=== PATIENT | male | born 1990 | race Caucasian/White ===

== ENCOUNTER 2020-09-24 18:30 | Inpatient (IN) ==
[2020-09-24] MEDS ORDERED: ONDANSETRON INJ 2 MG/ML 2 ML VIAL IV STA (18:52)
[2020-09-24] MEDS ORDERED: cefTRIAXone SODIUM 2,000 MG/70 ML BAG IV STA (18:52)
[2020-09-24] MEDS ORDERED: SODIUM CHLORIDE 0.9% 1000ML 500 ML IV ONE (18:52)
--- NOTE | 2020-09-24 19:02 | Emergency Department Note ---
Impression & Plan Post-operative pain, Left buttock abscess, Leukocytosis ED Provider Note NAME: LAISHA PASCUAL AGE: 30 SEX: M : 1990 ARRIVES VIA: Walk-In INFORMANT: [Patient] ED PROVIDER(S): [Chapincito Harper MD] CHIEF COMPLAINT: Left buttock pain HISTORY OF PRESENT ILLNESS: The patient is a 30-year-old male who states that he left AMA from the [facility] this morning. He had presented there with 3 days of left buttock pain and with imaging, they found a deep buttock abscess. This was drained in the OR. The patient states that he was on IV antibiotics. This morning, his white blood cell count was 18,000. He got into an argument with the staff over his level of pain and what medication could be used for pain. He then signed out AGAINST MEDICAL ADVICE. The patient states that he is concerned that he needs further care. They actually were planning on keeping him in the hospital for 2 more days. There has been no fever, he has 8/10 left buttock pain. The wound has been draining but there has been no purulent drainage. No redness noticed. He has not had cough or cold or congestion. He feels anxious and states that he has not slept in about 40 hours because of the pain. The patient is a recovering narcotic abuser. He states he was on narcotic main tenance therapy for some time, no longer. REVIEW OF SYSTEMS: See HPI for pertinent positives and negatives. A total of ten systems were reviewed and were otherwise negative. PMHx/PSHx: See Below SOCIAL HISTORY: See Below. PHYSICAL EXAM: GENERAL: Patient is in mild distress from pain HEENT: No acute trauma, normocephalic atraumatic, mucous membranes moist, no nasal congestion, no scleral icterus. NECK: No stridor, no adenopathy, no meningismus, trachea is midline. LUNGS: Clear to auscultation bilaterally, no wheeze, no rhonchi, breath sounds equal. HEART: Tachycardic, regular rhythm, no murmurs. ABDOMEN: Soft, nontender, bowel sounds positive, no hernias, no peritonitis. EXTREMITIES: No cyanosis or edema, full range of motion of all the joints without pain or difficulty, no signs for acute trauma. NEUROLOGIC: Oriented x 3, no acute motor or sensory deficits, no focal weakness. SKIN: No rash, no jaundice, no diaphoresis. Buttock: The patient has a 2 cm incision to the left buttock. There is a dressing in place with some serosanguineous drainage. No surrounding erythema, no warmth. DIFFERENTIAL DIAGNOSIS: Abscess, cellulitis, hematoma, necrotizing fasciitis, drug abuse, medical noncompliance, suboptimal wound care. EMERGENCY DEPARTMENT COURSE/PROCEDURES: MEDICAL DECISION MAKING: There is a moderate leukocytosis at 16,000, this could be consistent with infection. As per the patient, his white blood cell count was 18,000 this morning. Patient is anemic with a hemoglobin of 10. Patient does carry history of anemia. Platelet count is elevated at 853. No significant electrolyte abnormality or kidney failure. No liver enzyme elevation. On exam, the patient had a surgical wound to the left buttock. There was some subtle surrounding erythema. No purulent drainage. The patient was not febrile. He was slightly tachycardic upon arrival though. The patient received a 500 cc saline bolus. He was given 2 g of IV ceftriaxone as antibiotic coverage. He received IV Dilaudid for pain, IV Zofran for nausea. We did contact [facility], they are working on sending his information from his recent hospital stay to us for review. I think the patient deserves a hospital stay. He was to stay at the other facility for a few more days. I do think IV antibiotic therapy would be warranted. 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 If he does well with IV antibiotics, he can be transitioned to oral antibiotic therapy. I spoke to the patient and case management. The on-call hospitalist was consulted. Past Med/Surg History Medical History Diabetes type 1, uncontrolled Peptic ulcer with perforation Surgical History History of pancreatectomy Hx of cholecystectomy Hx of splenectomy Family History Other No pertinent family history in first degree relatives Social History Smoking Status: Current every day smoker Cigarettes Per Day: 1 pack a day; Hx Alcohol Use: No Feels Safe at Home: Yes Allergies Allergies Allergy/AdvReac Type Severity Reaction Status Date / Time gabapentin Allergy Intermediate Hives Verified 09/24/20 19:43 metoclopramide [From Reglan] Allergy Intermediate Hives Verified 09/24/20 19:43 NSAIDS (Non-Steroidal AdvReac Unknown Ulcers Verified 09/24/20 19:43 Anti-Inflamma Home Meds Home Medications Medication Instructions Recorded Confirmed insulin glargine 100 unit/mL (3 15 units SQ HS ml 01/14/20 09/24/20 mL) subcutaneous pen amitriptyline 25 mg PO HS 09/24/20 09/24/20 ascorbic acid (vitamin C) [Vitamin 500 mg PO DAILY 09/24/20 09/24/20 C] duloxetine 30 mg PO DAILY 09/24/20 09/24/20 ferrous sulfate 325 mg PO QAM 09/24/20 09/24/20 insulin lispro [Humalog KwikPen See Rx Instructions .ROUTE .COMPLEX 09/24/20 09/24/20 Insulin] [id number] [Zenpep] See Rx Instructions .ROUTE .COMPLEX 09/24/20 09/24/20 nicotine 1 patch TRANSDERMAL DAILY 09/24/20 09/24/20 omeprazole 40 mg PO BID 09/24/20 09/24/20 polyethylene glycol 3350 [Miralax] 17 g PO DAILY PRN 09/24/20 09/24/20 sucralfate 1 g PO ACHS 09/24/20 09/24/20 Results & Data (ED) Vital Signs Vital Signs - 24 hr 09/24/20 18:34 09/24/20 19:32 09/24/20 19:34 Temperature 36.8 C Temperature Source Oral Pulse Rate 118 H 91 H 95 H Pulse Rate [Bilateral Apical] Respiratory Rate 20 22 22 Respiratory Effort / Characteristics Non-Labored Spontaneous Respiratory Depth Normal Respiratory Pattern Regular Blood Pressure 159/54 H 139/94 Blood Pressure [Left Arm] Blood Pressure Mean 89 104 Blood Pressure Mean [Left Arm] Pulse Oximetry 99 Oxygen Delivery Method Room Air Sepsis Recent Fever Within 48 Hours No Sepsis New/Unexplained Change in Mental Status N/A Sepsis Action Taken by Nursing No Action Required 09/24/20 20:17 09/24/20 21:06 09/24/20 21:49 Temperature Temperature Source Pulse Rate Pulse Rate [Bilateral Apical] 91 H 87 92 H Respiratory Rate 20 20 18 Respiratory Effort / Characteristics Respiratory Depth Respiratory Pattern Blood Pressure Blood Pressure [Left Arm] 139/94 174/95 H Blood Pressure Mean Blood Pressure Mean [Left Arm] 109 121 Pulse Oximetry 96 100 95 Oxygen Delivery Method Room Air Room Air Room Air Sepsis Recent Fever Within 48 Hours Sepsis New/Unexplained Change in Mental Status Sepsis Action Taken by Nursing 09/24/20 22:13 Temperature Temperature Source Pulse Rate Pulse Rate [Bilateral Apical] 92 H Respiratory Rate 18 Respiratory Effort / Characteristics Respiratory Depth Respiratory Pattern Blood Pressure Blood Pressure [Left Arm] 140/97 Blood Pressure Mean Blood Pressure Mean [Left Arm] 111 Pulse Oximetry 97 Oxygen Delivery Method Room Air Sepsis Recent Fever Within 48 Hours Sepsis New/Unexplained Change in Mental Status Sepsis Action Taken by [facility] Medications Current Medication List: was personally reviewed by me Laboratory Data Attestation: I reviewed the patient's lab results. Result diagrams: 09/24/20 20:44 09/24/20 20:20 Lab Results 09/24/20 09/24/20 Range/Units 20:20 20:44 WBC 16.51 H (4.8-10.8) K/uL RBC 4.63 L (4.7-6.1) M/uL Hgb 10.0 L (14.0-18.0) g/dL Hct 35.6 L (42-52) % MCV 76.9 L (80-100) fL MCH 21.6 L (25-34) pg MCHC 28.1 L (32-36) g/dL RDW Std Deviation 72.2 H (36.4-46.3) fL RDW Coeff of Tomas 26.6 H (11.5-14.5) % Plt Count 853 H (130-400) K/uL MPV 9.8 (7.4-10.4) fL Immature Gran % (Auto) 0.4 % Neut % (Auto) 77.5 % Lymph % (Auto) 10.9 % Gage % (Auto) 9.9 % Eos % (Auto) 0.8 % Baso % (Auto) 0.5 % Neut # (Auto) 12.80 H (1.4-6.5) K/uL Lymph # (Auto) 1.80 (1.2-3.4) K/uL Gage # (Auto) 1.63 H (0.11-0.59) K/uL Eos # (Auto) 0.13 (0-0.5) K/uL Baso # (Auto) 0.09 (0-0.2) K/uL Immature Gran # (Auto) 0.06 H (0.00-0.02) K/uL Toxic Vacuolation 1+ Hypochromasia Present Anisocytosis Present Spherocytes Occasional Target Cells 1+ Echinocytes 1+ Sodium 137 (136-145) mmol/L Potassium (3.5-5.1) mmol/L Chloride 106 (98-107) mmol/L Carbon Dioxide 25 (21-32) mmol/L Anion Gap 6.0 (3-11) BUN 7 (7-18) mg/dl Creatinine 1.05 (0.6-1.4) mg/dl Est Cr Clr Drug Dosing 107.2 ml/min Est GFR ( Amer) 110.6 Est GFR (Non-Af Amer) 95.5 BUN/Creatinine Ratio 6.2 L (10-20) Glucose 90 (70-99) mg/dl Calcium 8.7 (8.5-10.1) mg/dl Total Bilirubin 0.3 (0.2-1) mg/dl AST (15-37) U/L ALT 62 (12-78) U/L Alkaline Phosphatase 105 (45-117) U/L Total Protein 7.4 (6.4-8.2) gm/dl Albumin 2.9 L (3.4-5.0) gm/dl Globulin 4.5 H (2.5-4.0) gm/dl Albumin/Globulin Ratio 0.6 L (0.9-2) Administered Medications Hydromorphone HCl (Hydromorphone Inj 1 Mg/Ml Syringe) 1 mg IV Q30M PRN PRN Reason: Pain Stop: 10/08/20 18:51 Last Admin: 09/24/20 21:04 Dose: 1 mg Documented by: [id number] Admin: 09/24/20 20:19 Dose: 1 mg Documented by: [id number] Discontinued Medications Sodium Chloride (Nss 1000ml) 500 mls @ 999 mls/hr IV .Q31M ONE Stop: 09/24/20 19:22 Last Infusion: 09/24/20 20:55 Dose: 0 mls/hr Documented by: [id number] Admin: 10/31/20 20:19 Dose: 999 mls/hr Documented by: [id number] Ceftriaxone Sodium (Rocephin) 2,000 mg in 70 mls @ 140 mls/hr IV NOW STA Stop: 09/24/20 19:21 Last Infusion: 09/24/20 20:55 Dose: 0 mls/hr Documented by: [id number] Admin: 09/24/20 20:19 Dose: 140 mls/hr Documented by: [id number] Ondansetron HCl (Ondansetron Inj 2 Mg/Ml 2 Ml Vial) 4 mg IV NOW STA Stop: 09/24/20 18:53 Last Admin: 09/24/20 20:19 Dose: 4 mg Documented by: [id number] Discharge Plan Visit Data Chief Complaint: Wound Stated Complaint: surgery yesterday, wound ED Provider: Chapincito Harper Discharge Problem: Post-operative pain, Left buttock abscess, Leukocytosis Patient Disposition: Admitted As Inpatient Condition: Good Forms Stand Alone Forms: Grafighters Prescriptions Prescriptions: No Action Lantus Solostar U-100 Insulin 100 unit/mL (3 mL) insulin pen 15 units SQ HS RF: 0 sucralfate 1 gram tablet 1 g PO ACHS RF: 0 omeprazole 40 mg capsule,delayed release(DR/EC) 40 mg PO BID RF: 0 amitriptyline 25 mg tablet 25 mg PO HS RF: 0 ascorbic acid (vitamin C) [Vitamin C] 500 mg tablet 500 mg PO DAILY RF: 0 ferrous sulfate 325 mg (65 mg iron) tablet 325 mg PO QAM RF: 0 nicotine 21 mg/24 hr Patch 24 Hour 1 patch TRANSDERMAL DAILY RF: 0 polyethylene glycol 3350 [Miralax] 17 gram/dose Powder 17 g PO DAILY PRN (Reason: Constipation) RF: 0 insulin lispro [Humalog KwikPen Insulin] 100 unit/mL insulin pen See Rx Instructions .ROUTE .COMPLEX RF: 0 duloxetine 30 mg capsule,delayed release(DR/EC) 30 mg PO DAILY RF: 0 Zenpep 40,000-126,000- 168,000 unit capsule,delayed release(DR/EC) See Rx Instructions .ROUTE .COMPLEX RF: 0 Referrals Referrals: PCP,NO [Primary Care Provider] - Discharge Problem: Leukocytosis Qualifiers: Leukocytosis type: unspecified Qualified Code(s): D72.829 - Elevated white blood cell count, unspecified
[2020-09-24] MEDS: HYDROmorphone INJ 1 MG/ML SYRINGE IV PRN ×3 (20:19→22:40)
[2020-09-24 21:13] LABS: Albumin Globulin Ratio 0.6 (0.9-2); Albumin Level 2.9 gm/dl (3.4-5.0); BUN Creatinine Ratio 6.2 (10-20); Bilirubin,Total 0.3 mg/dl (0.2-1); Calcium 8.7 mg/dl (8.5-10.1); Creatinine Clr Calc Pharmacy 107.2 ml/min; Est GFR (African American) 110.6; Est GFR (Non-African American) 95.5; Globulin 4.5 gm/dl (2.5-4.0); Total Protein 7.4 gm/dl (6.4-8.2)
[2020-09-24 21:18] LABS: Hematocrit (blood only) 35.6 % (42-52); Mean Corpuscular Hemoglobin 21.6 pg (25-34); Mean Corpuscular Hgb Conc 28.1 g/dL (32-36); Mean Corpuscular Volume 76.9 fL (80-100); Mean Platelet Volume 9.8 fL (7.4-10.4); Platelet Count 853 K/uL (130-400); RDW Coefficient of Variation 26.6 % (11.5-14.5); RDW Standard Deviation 72.2 fL (36.4-46.3); Red Blood Count 4.63 M/uL (4.7-6.1); White Blood Count 16.51 K/uL (4.8-10.8)
[2020-09-24 21:35] LABS: Anisocytosis Present; Basophils # (auto) 0.09 K/uL (0-0.2); Basophils % (auto) 0.5 %; Echinocytes 1+; Eosinophils # (auto) 0.13 K/uL (0-0.5); Eosinophils % (auto) 0.8 %; Hypochromasia Present; Immature Granulocytes # (auto) 0.06 K/uL (0.00-0.02); Immature Granulocytes % (auto) 0.4 %; Lymphocytes % (auto) 10.9 %; Monocytes # (auto) 1.63 K/uL (0.11-0.59); Monocytes % (auto) 9.9 %; Neutrophils % (auto) 77.5 %; Spherocytes Occasional; Target Cells 1+; Toxic Vacuolation 1+
[2020-09-24] MEDS ORDERED: POLYETHYLENE (MIRALAX) 17 GM PACK PO PRN (23:55)
[2020-09-24] MEDS ORDERED: ACETAMINOPHEN 325 MG TAB PO PRN (23:55)
[2020-09-24] MEDS ORDERED: PIPERACILL/TAZOBAC CONSULT ACTIVE PRN (23:55)
[2020-09-24] MEDS ORDERED: ONDANSETRON INJ 2 MG/ML 2 ML VIAL IV PRN (23:55)
[2020-09-25] MEDS ORDERED: PANTOprazole 40 MG TAB PO SCH (00:01)
[2020-09-25] MEDS ORDERED: PANCREAZE (LIPASE 16,800U) CAP PO PRN (00:11)
[2020-09-25] MEDS: oxyCODONE HCL IR 5 MG TAB (IMMEDIATE RELEASE) PO PRN ×4 (00:13→18:23)
[2020-09-25] MEDS ORDERED: GLUCOSE 10 TABS/TUBE PO PRN (00:15)
[2020-09-25] MEDS ORDERED: GLUCAGON FOR INJ 1 MG VIAL SQ PRN (00:15)
[2020-09-25] MEDS ORDERED: GLUCOSE 40% GEL 15 GM TUBE PO PRN (00:15)
[2020-09-25] MEDS ORDERED: CARBOHYDRATES FOR HYPOGLYCEMIA PO PRN (00:15)
[2020-09-25] MEDS ORDERED: DEXTROSE 50% 50 ML SYRINGE IV PRN (00:15)
[2020-09-25] MEDS ORDERED: PIPERACILLIN/TAZOBACTAM 3.375 GM in DEXTROSE 5% 100 ML IV SCH (00:30)
[2020-09-25] MEDS: HYDROmorphone INJ 0.5 MG/0.5 ML SYR IV PRN ×4 (01:52→12:29)
--- NOTE | 2020-09-25 02:00 | History and Physical Report ---
DATE OF ADMISSION: 09/24/2020 CHIEF COMPLAINT: Left gluteus abscess. HISTORY OF PRESENT ILLNESS: This is a 30-year-old male with past medical history significant for chronic pancreatitis, status post Whipple's procedure x2 with splenectomy, pancreatectomy, and cholecystectomy, history of insulin-dependent diabetes mellitus, pseudoseizures, peptic ulcer disease, GI bleeding, iron deficiency anemia, who presents with left buttocks wound. The patient was in the [facility] yesterday and CT scan and MRI scan showed about 10 x 2 x 4.4 cm left gluteal deep abscess which was drained and plan was to keep him there for a couple of days with IV antibiotics, but the patient asked for Dilaudid and he was not given and he signed out AMA and he comes back here today because of increasing pain in the buttock region. Denies any fever or chills. There is mild serosanguineous drainage seen at the wound site. Denies any fever, chills. No headache, no blurred vision, no earache, no runny nose, no sore throat, no cough, no dysphagia, no chest pain, no shortness of breath, no nausea, no vomiting, no abdominal pain currently. No blood in the stools or black stools. Normal bladder movements. No swelling in the legs, no rash. Currently resting comfortably and hemodynamically stable. ALLERGIES: NSAIDS, AZITHROMYCIN, GABAPENTIN, REGLAN. PAST MEDICAL HISTORY: As mentioned above. PAST SURGICAL HISTORY: Colonoscopy, EGD, Whipple's procedure x2, cholecystectomy, inguinal hernia repair, transplant of islet cells, pain pump insertion with removal, peripheral arterial ulcer with repair. MEDICATIONS: Currently the patient is on amitriptyline 25 mg at bedtime, vitamin C 500 mg p.o. daily, duloxetine 30 mg p.o. daily, ferrous sulfate 325 mg p.o. daily, Lantus 15 units subQ at bedtime, insulin sliding scale, Creon with meals, nicotine patch 21 mg daily, omeprazole 40 mg p.o. b.i.d., MiraLax 17 mg p.o. daily, sucralfate 1 gram p.o. a.c. and at bedtime. FAMILY HISTORY: Significant for paternal grandfather has dementia, maternal grandfather has dementia.. SOCIAL HISTORY: Single, smokes half pack a day for last 8 years. Alcohol occasionally. No recreational drug use. REVIEW OF SYSTEMS: As per HPI. Rest of the review of systems negative. PHYSICAL EXAMINATION: GENERAL: The patient is of moderate build, not in acute distress. VITAL SIGNS: Temperature 36.8, pulse 84, respiratory rate 18, blood pressure 160/98, oxygen 95% on room air. HEENT: Pupils equal, round, and reactive to light. NECK: No JVD, no neck masses. CARDIOVASCULAR: S1, S2 heard. Regular rate and rhythm, no murmur, no gallop. RESPIRATORY SYSTEM: Normal AP diameter. No accessory muscle use. No wheezing, no crackles. ABDOMEN: Soft. Bowel sounds present, nontender. No distention. CENTRAL NERVOUS SYSTEM: Cranial nerves II-XII grossly intact, nonfocal. SKIN: Small incision site seen on the left buttocks. The patient is status post I and D yesterday, the site is clean. Mild serosanguineous drainage seen. No erythema seen. EXTREMITIES: No edema, no erythema. LABORATORY DATA: WBC 16.5, hemoglobin 10, hematocrit 35.6, platelets 853. Sodium 137, , chloride 106, bicarbonate 25, BUN 7, creatinine 1, serum glucose 90, calcium 8.7, total bilirubin 0.3, ALT 62, alkaline phosphatase 105. ASSESSMENT AND PLAN: This is a 30-year-old male who presents with left gluteal abscess. 1. Left gluteal abscess status post I and D at [facility] yesterday. Signed out AMA because he could not get pain medications. Nasal MRSA negative swab, at [facility]. Will continue with IV Zosyn. We will follow the final culture results at the [facility]. Pain control. Monitor in the medical floor. 2. History of chronic pancreatitis, status post Whipple's procedure x2. Continue his pancreas lipase capsules. 3. History of peptic ulcer disease, history of GI bleeding, history of perforated ulcer, status post repair. Recent Gi bleed and was at [facility] . EGD was done with ulceration at the gastrojejunal anastomosis, which was likely the source of his GI bleeding. Currently he is on Protonix, PPI, and sucralfate. He also received three doses of IV Venofer. Currently on iron tablets. Follow up with GI.Will follow labs. 4. History of depression. Continue duloxetine. 5. Diabetes. Continue his home Lantus. Placed him on insulin sliding scale. Follow the blood sugars. 6. History of tobacco abuse. Continue his nicotine patch. 7. Deep venous thrombosis prophylaxis, sequential compression devices. DISPOSITION: Monitor in the medical floor. Expect to discharge home and follow up with family doctor. BAMBI
[2020-09-25] MEDS: PIPERACILLIN/TAZOBACTAM 3.375 GM in DEXTROSE 5% 100 ML IV SCH ×3 (06:22→21:44)
[2020-09-25] MEDS: PANCREAZE (LIPASE 16,800U) CAP PO SCH ×3 (08:22→17:19)
[2020-09-25] MEDS: SUCRALFATE 1 GM TAB PO SCH ×4 (08:22→21:42)
[2020-09-25] MEDS: NICOTINE 21 MG/24 HR TDSY TD SCH (08:23)
[2020-09-25] MEDS: DULoxetine HCL 30 MG CAP PO SCH (08:23)
[2020-09-25] MEDS: FERROUS SULFATE 325 MG TAB PO SCH (08:23)
[2020-09-25] MEDS: PANTOprazole 40 MG TAB PO SCH ×2 (08:24→21:42)
[2020-09-25] MEDS: ASCORBIC ACID 500 MG TAB PO SCH (08:24)
[2020-09-25] MEDS: INSULIN ASPART 100 UNITS/ML 3 ML PEN SC SCH ×5 (08:30→23:38)
[2020-09-25] MEDS ORDERED: IOVERSOL 100ml IV ONE (14:16)
--- NOTE | 2020-09-25 16:05 | CT Scan Report ---
ABDOMEN AND PELVIS CT WITH IV CONTRAST CT DOSE: 628.60 mGycm HISTORY: Acute gluteal pain with possible gluteal abscess Gluteal abscess TECHNIQUE: Multiaxial CT images of the abdomen and pelvis were performed following the IV administrat ion of 93 cc of Optiray 320, A dose lowering technique was utilized adhering to the principles of AL MICHAEL. COMPARISON STUDY: CT abdomen and pelvis 07/20/2019 FINDINGS: Trace pleural effusions. Mild dependent subsegmental bibasilar atelectasis. There is no pne umatosis or pneumoperitoneum. Pneumobilia with prior cholecystectomy is unchanged suggestive of sphin cterotomy. Unenhanced liver is otherwise unremarkable. Splenectomy. There also appears to be postoper ative changes of prior distal pancreatic resection. Unremarkable adrenal glands. And the kidneys are unremarkable with a probable cyst of the inferior pole right kidney, 7 mm. No hydronephrosis. Unremar kable urinary bladder. Aorta and IVC are unremarkable. There is no adenopathy. Venous hyperdensities within the left hemipelvis. Postoperative changes of the stomach and small bowel redemonstrated. No bowel obstruction or bowel wa ll thickening. Normal appendix. Scattered small bowel air-fluid levels with nondilated fluid-filled l oops, likely physiologic. There is thinning of the ventral abdominal wall. Subcutaneous edema of the left gluteal distribution. Ill-defined heterogeneity measuring up to approximately 2.9 cm involves th e inferior lateral aspect of the left gluteus eric on image 556 of series 102. No opaque foreign b isai or drainable fluid collection. Small focus of subcutaneous air. No acute fracture. Remote bilater al L5 pars defects with 8 mm anterolisthesis L5 on S1. IMPRESSION: 1. Moderate subcutaneous edema of the upper lateral left thigh and posterolateral left buttock sugges ts cellulitis. Ill-defined heterogeneity of the inferolateral left gluteus eric is suggestive of m yositis versus developing intramuscular abscess. No drainable fluid collection identified. Small focu s of gas within the subcutaneous tissues is suggestive of instrumentation versus gas forming organism . 2. No acute intra-abdominal or intrapelvic abnormality identified. 3. Multiple air and fluid-filled nondilated loops of small bowel, likely physiologic. 4. Trace pleural effusions. 5. Chronic postoperative changes as above. ACT 112: Negative or not required by law. The above report was generated using voice recognition software. It may contain grammatical, syntax o r spelling errors. Electronically signed by: Jorge Alberto Moy M.D. 09/25/2020 4:04 PM
[2020-09-25] MEDS: HYDROmorphone INJ 1 MG/ML SYRINGE IV PRN ×2 (16:28→20:34)
--- NOTE | 2020-09-25 17:26 | Hospitalist Progress Note ---
Date of Service September 25, 2020 Assessment & Plan (1) Left buttock abscess: . Left gluteal abscess had small wound on left buttock area as he used blunted insulin pen needle for insulin administration initially it was a small papule , few days later pain was intensified . went to nearby Hospital at [facility] status post I and D at [facility] on 09/24 Signed out AMA because he could not get pain medications- pt has severe anxiety disorder /chronic insomnia gets irritated easily , was upset with multiple needle sticks needed for lab draw-pt is a very difficult stick Nasal MRSA negative on IV Zosyn. requested medical reports from [facility]. CT of abdomen /Pelvis at [facility] : 1. Moderate subcutaneous edema of the upper lateral left thigh and posterolateral left buttock suggests cellulitis. Ill-defined heterogeneity of the inferolateral left gluteus eric is suggestive of myositis versus developing intramuscular abscess. No drainable fluid collection identified. Small focus of gas within the subcutaneous tissues is suggestive of instrumentation versus gas forming organism. 2. No acute intra-abdominal or intrapelvic abnormality identified. -orthopedics consulted ID consult with [facility] History of chronic pancreatitis, status post Whipple's procedure x2. -hx of recurrent pancreatitis /required pancreatic resection /splenectomy - underlying genetic mutation /genetic disease on pancreas lipase capsules. no GI symptoms SEVERE ANXIETY DISORDER /DEPRESSION ; hx of residential anxiety disorder /depression -symptoms worsened with multiple surgeries and medical illness has not seen any Psychiatrist yet was recently seen by his family physician -started on Elavil 25 mg HS pt reports no improvement of symptoms scheduled to see [facility] Psychiatry pt reports poor sleep -chronic insomnia /very irritable , panic attacks ordered for Vitaril PRN for anxiety added Trazodone 100 mg HS prn for sleep Psychiatry consulted to address pt's sever anxiety disorder during this hospital stay - History of peptic ulcer disease, -on PPI history of GI bleeding history of perforated ulcer, status post repair. Recent episode of Gi bleed and was treated at [facility] EGD showed ulceration at the gastrojejunal anastomosis, no complain of dark stool H&H stable avoid antiplatelets and NSAID's on Protonix, PPI, and sucralfate. He Diabetes type 1 s/p surgical removal of pancreas Continue his home Lantus. insulin sliding scale. will consult pharmacy for glycemic management Deep venous thrombosis prophylaxis, sequential compression devices. Admission and Anticipated Discharge Date Admission Date: September 24, 2020 Subjective pt reports continued pain on left gluteal area getting relief with intermittent dilaudid no fever or chills mother present at bedside Review of Systems Review of Systems: All systems reviewed & are unremarkable except as noted in HPI & below Physical Exam Constitutional: WD/WN, vitals as above Eyes: PERRL, conjunctivae normal, anicteric sclerae ENMT: external ear and nose normal, oropharynx normal Neck: trachea midline, no thyromegaly Respiratory: normal respiratory effort, lungs clear to auscultation Cardiovascular: RRR, no murmur, no edema Gastrointestinal (Abdomen): normal bowel sounds, soft, nontender, no hepatosplenomegaly Musculoskeletal: tenderness on left gluteal area, surgical incision site from recent I& D-noted , no surrounding erythema or swelling noted Neurologic: PERRL, EOMI, accommodation nl, no face palsy, no dysarthria Psychiatric: Orientation: alert and oriented x 3 Affect: + anxious affect Results & Data Results & Data ([facility]) Vital Signs (Past 12 Hours) Vital Signs Temp Pulse Resp BP Pulse Ox 09/25/20 15:50 36.7 C 70 16 154/93 H 99 09/25/20 07:29 36.9 C 69 18 146/83 H 95
--- NOTE | 2020-09-25 17:51 | Communication Note ---
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
[2020-09-25] MEDS ORDERED: PHARMACY GLYCEMIC MGMT CONSULT PRN (17:57)
[2020-09-25] MEDS ORDERED: INSULIN GLARGINE SOLOSTAR 100 UNITS/ML 3 ML PEN SC STA (18:10)
[2020-09-25] MEDS ORDERED: hydrOXYzine HCl 25 MG TAB PO PRN (18:16)
[2020-09-25] MEDS ORDERED: traZODone HCL 100 MG TAB PO PRN (18:16)
[2020-09-25] MEDS ORDERED: AMITRIPTYLINE HCL 25 MG TAB PO SCH (21:00)
[2020-09-25] MEDS ORDERED: INSULIN GLARGINE SOLOSTAR 100 UNITS/ML 3 ML PEN SQ SCH (21:00)
[2020-09-25 21:06] LABS: Amphetamines+Metham, Urine Neg (Neg); Barbiturates, Urine Neg (Neg); Benzodiazepine, Urine Neg (Neg); Cocaine, Urine Neg (Neg); MDMA (Ecstacy), Urine Neg (Neg); Methadone, Urine Neg (Neg); Opiate, Urine Pos (Neg); Phencyclidine, Urine Neg (Neg)
[2020-09-26] MEDS: HYDROmorphone INJ 1 MG/ML SYRINGE IV PRN ×6 (01:40→23:02)
[2020-09-26] MEDS: INSULIN ASPART 100 UNITS/ML 3 ML PEN SC SCH ×8 (03:47→21:11)
[2020-09-26] MEDS: PIPERACILLIN/TAZOBACTAM 3.375 GM in DEXTROSE 5% 100 ML IV SCH ×2 (05:53→18:10)
[2020-09-26] MEDS: oxyCODONE HCL IR 5 MG TAB (IMMEDIATE RELEASE) PO PRN ×4 (07:48→22:09)
[2020-09-26] MEDS: PANTOprazole 40 MG TAB PO SCH ×2 (07:53→21:10)
[2020-09-26] MEDS: ASCORBIC ACID 500 MG TAB PO SCH (07:53)
[2020-09-26] MEDS: PANCREAZE (LIPASE 16,800U) CAP PO SCH ×3 (07:54→17:27)
[2020-09-26] MEDS: SUCRALFATE 1 GM TAB PO SCH ×4 (07:54→21:10)
[2020-09-26] MEDS: FERROUS SULFATE 325 MG TAB PO SCH (07:55)
[2020-09-26] MEDS: NICOTINE 21 MG/24 HR TDSY TD SCH (07:56)
[2020-09-26] MEDS: DULoxetine HCL 30 MG CAP PO SCH (07:56)
--- NOTE | 2020-09-26 09:50 | Pharmacy Report ---
Glycemic Control Consultation - Date of Service September 26, 2020 - Scope Scope: Glycemic Pharmacist consulted for glycemic control and to write orders per [facility] inpatient glycemic control protocol. - Objective Weight: 84.5 kg Accuchecks BSG (last 24hrs): - Recent Pertinent Medications Outpatient Anti-diabetic Regimen: * Lantus 15 units SC HS + Humalog SSI (CR 25 & CF 35) * A1c = pending Risk Factors for Insulin Resistance: * Infection: * Gluteal abscess on Zosyn * Diet: * T2DM - Assessment & Plan Assessment & Plan: ASSESSMENT: 09/26: * 30 yo M admitted secondary to left gluteal abscess. Pharmacy is consulted for inpatient glycemic management. PMHx significant for h/o chronic pancreatitis s/p Whipple's procedure x 2 w/ splenectomy, pancreatectomy, cholecystectomy, IDDM. * Patient did not receive any basal insulin on 09/24 so BSGs yesterday were elevated. He was given a total of 47 units of insulin yesterday: * 20 units basal + 27 units bolus * BSGs were [phone] mg/dL - uncontrolled * Fasting BSG this AM was 116 mg/dL - well controlled * Will reduce basal dose this evening as an increased dose was given last evening secondary to basal deficiency. * Lunchtime BSG was 149 mg/dL - adequate control * No change to Novolog parameters necessary PLAN FOR INPATIENT GLYCEMIC CONTROL: * Basal insulin - decrease * Lantus 12 units SQ HS * Bolus insulin - no change * NovoLog per scale ACHS or Q6hrs while NPO * Goal Range: Low 110 mg/dL - High 140 mg/dL * Correction Factor: 25 mg/dL/unit * Nutritional / Prandial insulin per carb ratio of 1 unit per 7 grams CHO consumed * Please note that the plan above was derived based on current level of insulin resistance and hospital stress. These recommendations are appropriate for inpatient admission only. Plan of care upon discharge will need to be reassessed to avoid potential outpatient hypo/hyperglycemia. Thank you.
[2020-09-26 10:45] LABS: Albumin Level 2.8 gm/dl (3.4-5.0); BUN Creatinine Ratio 6.7 (10-20); Creatinine Clr Calc Pharmacy 95.4 ml/min; Est GFR (African American) 96.1; Est GFR (Non-African American) 82.9
[2020-09-26 10:48] LABS: Albumin Globulin Ratio 0.6 (0.9-2); Basophils # (auto) 0.08 K/uL (0-0.2); Basophils % (auto) 0.8 %; Bilirubin,Total 0.2 mg/dl (0.2-1); Eosinophils # (auto) 0.26 K/uL (0-0.5); Eosinophils % (auto) 2.6 %; Globulin 4.7 gm/dl (2.5-4.0); Hematocrit (blood only) 37.9 % (42-52); Hemoglobin 10.8 g/dL (14.0-18.0); Immature Granulocytes # (auto) 0.03 K/uL (0.00-0.02); Immature Granulocytes % (auto) 0.3 %; Lymphocytes # (auto) 1.73 K/uL (1.2-3.4); Lymphocytes % (auto) 17.3 %; Mean Corpuscular Hemoglobin 21.5 pg (25-34); Mean Corpuscular Hgb Conc 28.5 g/dL (32-36); Mean Corpuscular Volume 75.3 fL (80-100); Mean Platelet Volume 9.8 fL (7.4-10.4); Monocytes # (auto) 1.08 K/uL (0.11-0.59); Monocytes % (auto) 10.8 %; Neutrophils # (auto) 6.84 K/uL (1.4-6.5); Neutrophils % (auto) 68.2 %; Platelet Count 839 K/uL (130-400); RDW Coefficient of Variation 26.5 % (11.5-14.5); RDW Standard Deviation 71.3 fL (36.4-46.3); Red Blood Count 5.03 M/uL (4.7-6.1); Total Protein 7.5 gm/dl (6.4-8.2); White Blood Count 10.02 K/uL (4.8-10.8)
[2020-09-26 10:52] LABS: Anisocytosis Present; Hypochromasia Present; Microcytosis Present; Target Cells 1+
[2020-09-26 11:13] LABS: Estimated Average Glucose 166 mg/dl; Hemoglobin A1C 7.4 % (4.5-5.6)
--- NOTE | 2020-09-26 12:09 | Psychiatric Consultation ---
Date of Consultation September 26, 2020 Impression / Recommendations Impression 30 yo male with unspecified depressive disorder and primary insomnia, if not also secondary due brain injury and underlying mood disturbance. History and exam are subclinical for bipolar spectrum disorder at this time and it seems that his anxiety is driven by his sleep disturbance. He has failed multiple medications but has a history of positive response to Seroquel, all be it in his teens. Plan: There is no indication for inpatient psychiatric hospitalization. f/u with [facility] psychiatrist as scheduled later this month. Continue Cymbalta for depression. would recommend d/c Vistaril, trazodone, and Elavil in favor of a retrial of Seroquel. Patient is aware of off label use and need for longer term monitoring by psychiatry and can contribute to metabolic derangements so will need to be approved by hospitalist service. If appropriate, would recommend 100 mg qhs Seroquel with a 1 time repeat as needed. Seroquel 25 mg daily prn if needed, unlikely if sleep improved. update: recs reviewed with Dr. Bass, approved use. Risk Factors Assessment Do You Have Access To A Gun?: No Psych History Identifying Data 30 yo male with longstanding insomnia and multiple medical procedures around pancreas resulting in insulin dependent DM, admit for IV antibiotics due to glu teal abscess. Consult is for anxiety, panic, recs re: psych meds. Chief Complaint "I just want to be able to fall sleep". History of Present Illness Doug reports onset of sleep and behavior disturbance in his teens which resolved until he started to have more "issues", relates hx of multiple concussions and anoxic brain injury (5 min apnea, medically induced coma when his ulcer perforated) over the course of his complicated medical history. He had sleep disturbance prior to the above but certainly no better after. No clear pattern, chronically has periods up to 48 hrs where he won't sleep, sometimes during that time he notes a perceptual disturbance of seeing a bright light in his peripheral vision. He states that he had sleep problems even when working [employer] jobs this summer for 12 hours days so doesn't think it's just sleep phase shift. He reports when can't sleep he is more likely to worry about social stressors (work, change in his lifestyle since not working, relationship, etc). These thoughts may border on racing but they are always organized and reality based. At times in the past he would go to the gym in the middle of night for something to do, otherwise denies increased goal directed behavior, impulsivity, distractibility. He denies depression at this time, no de angelica panic attacks. He states that appetite is good in that weight increase from 150 lb to 194 lb since off work. Sleep as above. He denies feeling hopeless or helpless and denies suicidal thoughts. 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 He feels his Cymbalta is helping his depression but other meds have had no benefit for his sleep. As far as other parasomnias, he only endorses somnabulism on Ambien and recent episode of sleep paralysis. He denies excessive caffeine intake and doesn't use any supplement or pre workouts. He denies sleep attacks or cataplexy. Past Psychiatric History Previous Psych History: reports 1 hospitalization as a teenager for disruptive anger, was given Seroquel at that time for ?bipolar but later this diagnosis was "debunked" Current Psychiatric Diagnosis: unspecified depressive disorder, anxiety or primary insomnia. Outpatient Services: scheduled with [facility] psychiatry 10/13. Do You Have Access To A Gun?: No History of Previous Suicide Attempt: No Past Medication Trials: unusre all--Ambien (sleep walking), up to 200 mg or more of Benadryl, mother's trazodone. Allergies Allergy/AdvReac Type Severity Reaction Status Date / Time gabapentin Allergy Intermediate Hives Verified 09/24/20 19:43 metoclopramide [From Reglan] Allergy Intermediate Hives Verified 09/24/20 19:43 NSAIDS (Non-Steroidal AdvReac Unknown Ulcers Verified 09/24/20 19:43 Anti-Inflamma Home Medications Home Medications Medication Instructions Recorded Confirmed Type insulin glargine 100 unit/mL (3 15 units SQ HS ml 01/14/20 09/24/20 History mL) subcutaneous pen amitriptyline 25 mg PO HS 09/24/20 09/24/20 History ascorbic acid (vitamin C) [Vitamin 500 mg PO DAILY 09/24/20 09/24/20 History C] duloxetine 30 mg PO DAILY 09/24/20 09/24/20 History ferrous sulfate 325 mg PO QAM 09/24/20 09/24/20 History insulin lispro [Humalog KwikPen See Rx Instructions .ROUTE .COMPLEX 09/24/20 09/24/20 History Insulin] [id number] [Zenpep] See Rx Instructions .ROUTE .COMPLEX 09/24/20 09/24/20 History nicotine 1 patch TRANSDERMAL DAILY 09/24/20 09/24/20 History omeprazole 40 mg PO BID 09/24/20 09/24/20 History polyethylene glycol 3350 [Miralax] 17 g PO DAILY PRN 09/24/20 09/24/20 History sucralfate 1 g PO ACHS 09/24/20 09/24/20 History Family History mother and gma--depression, brother hx heroin use, other older relatives with dementia Substance Abuse History clean since Jun 2019, hx of narcotic abuse, did use suboxone in past Personal History Living Arrangements: Apartment (with girlfriend) Born In: [place] Highest Grade Completed: High School Graduate Employment Status: Unemployed Number Of Children: none Beliefs That Will Affect Care: None History of Legal Problems: denied Psychological Trauma History Comment: denied Patient History Medical History Diabetes type 1, uncontrolled GI bleeding Iron deficiency anemia Narcotic abuse Pancreatitis, chronic Peptic ulcer with perforation Pseudoseizures Surgical History History of pancreatectomy Hx of cholecystectomy Hx of splenectomy Family History Other No pertinent family history in first degree relatives Social History Smoking Status: Current every day smoker Cigarettes Per Day: 1 pack a day; Do You Dip or Chew Tobacco: No; Tobacco Cessation Education Requested by Patient: Yes Hx Alcohol Use: No Hx Substance Use: Yes Last Used Substance: Unknown Preferred Language: Luxembourgish Communication Ability: Effective Spare Person Required: No Beliefs That Will Affect Care: None marital status: Single Current Living Situation: Parent and Significant Other Other Information That Helps Us Care for You: No Feels Safe at Home: Yes Safety Concerns: Feels Safe At This Time Assistive Devices: None and Glasses Physical Exam Psychiatric: Orientation: alert Apperance: appropriately groomed Eye Contact: good eye contact Motor Behavior: no abnormal motor movements Speech: normal rate/rhythm/volume of speech Affect: euthymic affect Mood: + anxious mood (due to insomnia) Thought Process: goal directed thought p rocess Thought Content: reality based without delusions Suicidal Thoughts: denies suicidal thoughts Homicidal Thoughts: denies homicidal thoughts Hallucinations: no auditory hallucinations and no visual hallucinations Cognition: attention grossly intact and language grossly intact Estimated Intelligence: consistent with education level Insight: + fair insight Judgement: + fair judgement Vital Signs (Past 24 Hours): Last Vital Signs Temp 36.4 C L 09/26/20 07:11 Pulse 76 09/26/20 07:11 Resp 16 09/26/20 07:11 BP 152/90 H 09/26/20 07:11 Pulse Ox 97 09/26/20 07:11 Review of Systems All systems reviewed & are unremarkable except as noted in HPI & below Results & Data (PSY) Medications Administered Amitriptyline HCl (Amitriptyline Hcl 25 Mg Tab) 25 mg PO HS DWIGHT Stop: 10/25/20 20:59 Last Admin: 09/25/20 21:42 Dose: 25 mg Documented by: [id number] Lipase/Protease/Amylase (Pancreaze (Lipase 16,800u) Cap) 3 cap PO TIDM DWIGHT Stop: 10/25/20 07:59 Last Admin: 09/26/20 07:54 Dose: 3 cap Documented by: [id number] Admin: 09/25/20 17:19 Dose: 3 cap Documented by: [id number] Admin: 09/25/20 12:28 Dose: 3 cap Documented by: [id number] Admin: 09/25/20 08:22 Dose: 3 cap Documented by: [id number] Ascorbic Acid (Ascorbic Acid 500 Mg Tab) 500 mg PO DAILY DWIGHT Stop: 10/25/20 08:59 Last Admin: 09/26/20 07:53 Dose: 500 mg Documented by: [id number] Admin: 09/25/20 08:24 Dose: 500 mg Documented by: [id number] Duloxetine HCl (Duloxetine Hcl 30 Mg Cap) 30 mg PO DAILY DWIGHT Stop: 10/25/20 08:59 Last Admin: 09/26/20 07:56 Dose: 30 mg Documented by: [id number] Admin: 09/25/20 08:23 Dose: 30 mg Documented by: [id number] Ferrous Sulfate (Ferrous Sulfate 325 Mg Tab) 325 mg PO QAM DWIGHT Stop: 10/25/20 08:59 Last Admin: 09/26/20 07:55 Dose: 325 mg Documented by: [id number] Admin: 09/25/20 08:23 Dose: 325 mg Documented by: [id number] Hydromorphone HCl (Hydromorphone Inj 1 Mg/Ml Syringe) 1 mg IV Q4 PRN PRN Reason: Pain Stop: 10/08/20 23:54 Last Admin: 09/26/20 10:56 Dose: 1 mg Documented by: [id number] Admin: 09/26/20 05:53 Dose: 1 mg Documented by: [id number] Admin: 09/26/20 01:40 Dose: 1 mg Documented by: [id number] Admin: 09/25/20 20:34 Dose: 1 mg Documented by: [id number] Admin: 09/25/20 16:28 Dose: 1 mg Documented by: [id number] Hydroxyzine HCl (Hydroxyzine Hcl 25 Mg Tab) 25 mg PO Q6 PRN PRN Reason: Anxiety Stop: 10/25/20 18:15 Last Admin: 09/25/20 21:42 Dose: 25 mg Documented by: [id number] Piperacillin Sod/Tazobactam (Sod 3.375 gm/ Dextrose) 115 mls @ 28.75 mls/hr IV Q8H [facility]; Protocol Stop: 10/02/20 05:59 Last Infusion: 09/26/20 10:57 Dose: 28.8 mls/hr Documented by: [id number] Infusion: 09/26/20 05:58 Dose: 0 mls/hr Documented by: [id number] Admin: 09/26/20 05:53 Dose: 28.8 mls/hr Documented by: [id number] Infusion: 09/26/20 01:40 Dose: 0 mls/hr Documented by: [id number] Admin: 09/25/20 21:44 Dose: 28.8 mls/hr Documented by: [id number] Infusion: 09/25/20 18:31 Dose: 0 mls/hr Documented by: [id number] Infusion: 09/25/20 14:52 Dose: 28.8 mls/hr Documented by: [id number] Infusion: 09/25/20 14:29 Dose: 0 mls/hr Documented by: [id number] Admin: 09/25/20 13:59 Dose: 28.8 mls/hr Documented by: [id number] Infusion: 09/25/20 10:37 Dose: 28.8 mls/hr Documented by: [id number] Admin: 09/25/20 06:22 Dose: 28.8 mls/hr Documented by: [id number] Insulin Aspart (Insulin Aspart 100 Units/Ml 3 Ml Pen) 0 units SC ACHS [facility]; Protocol Stop: 10/25/20 07:29 Last Admin: 09/26/20 08:54 Dose: 5 units Documented by: [id number] Cosigned by: [id number] Admin: 09/25/20 21:41 Dose: 3 units Documented by: [id number] Cosigned by: [id number] Admin: 09/25/20 17:20 Dose: 8 units Documented by: [id number] Cosigned by: [id number] Admin: 09/25/20 12:34 Dose: 9 units Documented by: [id number] Cosigned by: [id number] Admin: 09/25/20 08:30 Dose: 7 units Documented by: [id number] Cosigned by: [id number] Miscellaneous (Remove Nicoderm Patch) 1 ea N/A DAILY@0859 [facility] Stop: 10/26/20 08:58 Last Admin: 09/26/20 07:53 Dose: 1 ea Documented by: [id number] Nicotine (Nicotine 21 Mg/24 Hr Tdsy) 21 mg TD DAILY [facility] Stop: 10/25/20 08:59 Last Admin: 09/26/20 07:56 Dose: 21 mg Documented by: [id number] Admin: 09/25/20 08:23 Dose: 21 mg Documented by: [id number] Oxycodone HCl (Oxycodone Hcl Ir 5 Mg Tab (Immediate Release)) 5 mg PO Q4H PRN PRN Reason: Pain Stop: 10/08/20 23:54 Last Admin: 09/26/20 07:48 Dose: 5 mg Documented by: [id number] Admin: 09/25/20 18:23 Dose: 5 mg Documented by: [id number] Admin: 09/25/20 14:04 Dose: 5 mg Documented by: [id number] Admin: 09/25/20 04:35 Dose: 5 mg Documented by: [id number] Admin: 09/25/20 00:13 Dose: 5 mg Documented by: [id number] Pantoprazole Sodium (Pantoprazole 40 Mg Tab) 40 mg PO BID DWIGHT Stop: 10/25/20 08:59 Last Admin: 09/26/20 07:53 Dose: 40 mg Documented by: [id number] Admin: 09/25/20 21:42 Dose: 40 mg Documented by: [id number] Admin: 09/25/20 08:24 Dose: 40 mg Documented by: [id number] Sucralfate (Sucralfate 1 Gm Tab) 1 gm PO ACHS DWIGHT Stop: 10/25/20 07:29 Last Admin: 09/26/20 07:54 Dose: 1 gm Documented by: [id number] Admin: 09/25/20 21:42 Dose: 1 gm Documented by: [id number] Admin: 09/25/20 17:18 Dose: 1 gm Documented by: [id number] Admin: 09/25/20 12:09 Dose: 1 gm Documented by: [id number] Admin: 09/25/20 08:22 Dose: 1 gm Documented by: [id number] Trazodone HCl (Trazodone Hcl 100 Mg Tab) 100 mg PO HS PRN PRN Reason: sleep Stop: 10/25/20 20:59 Last Admin: 09/25/20 21:42 Dose: 100 mg Documented by: [id number] Coding Level of Care Code 00027 U Intl Hosp Care Lvl 3
[2020-09-26] MEDS ORDERED: QUEtiapine FUMARATE 100 MG TABLET PO PRN (12:31)
--- NOTE | 2020-09-26 13:13 | Orthopedic Consultation ---
Date of Consultation September 26, 2020 Assessment & Plan (1) Left buttock abscess: Status post I&D left gluteal abscess on 09/23/[address] [facility] scan does not demonstrate any reaccumulation of abscess at this time. Agree with IV antibiotics directed by ID, local wound care. No surgical indication at this time. Patient will need follow-up with his general surgeon postoperatively. Thank you for the consultation. History of Present Illness Reason for Consultation: Left buttock abscess Attending Physician: Shani Bass MD History of Present Illness The patient is a 30-year-old male who presented to [facility] with complaints of left buttock abscess and pain. This has been going on since 09/21/2020. The patient was initially treated at [facility] where he underwent I&D. Patient does not recall his surgeon's name but does state that general surgery performed his I&D. He subsequently left AMA. Has cultures pending at [facility] which are negative to date. Currently his pain is being controlled. Denies any fevers, chills, nausea, vomiting, shor tness of breath or chest pain. Allergies Allergy/AdvReac Type Severity Reaction Status Date / Time gabapentin Allergy Intermediate Hives Verified 09/24/20 19:43 metoclopramide [From Reglan] Allergy Intermediate Hives Verified 09/24/20 19:43 NSAIDS (Non-Steroidal AdvReac Unknown Ulcers Verified 09/24/20 19:43 Anti-Inflamma Home Medications Home Medications Medication Instructions Recorded Confirmed Type insulin glargine 100 unit/mL (3 15 units SQ HS ml 01/14/20 09/24/20 History mL) subcutaneous pen amitriptyline 25 mg PO HS 09/24/20 09/24/20 History ascorbic acid (vitamin C) [Vitamin 500 mg PO DAILY 09/24/20 09/24/20 History C] duloxetine 30 mg PO DAILY 09/24/20 09/24/20 History ferrous sulfate 325 mg PO QAM 09/24/20 09/24/20 History insulin lispro [Humalog KwikPen See Rx Instructions .ROUTE .COMPLEX 09/24/20 09/24/20 History Insulin] [id number] [Zenpep] See Rx Instructions .ROUTE .COMPLEX 09/24/20 09/24/20 History nicotine 1 patch TRANSDERMAL DAILY 09/24/20 09/24/20 History omeprazole 40 mg PO BID 09/24/20 09/24/20 History polyethylene glycol 3350 [Miralax] 17 g PO DAILY PRN 09/24/20 09/24/20 History sucralfate 1 g PO ACHS 09/24/20 09/24/20 History Patient History Medical History Diabetes type 1, uncontrolled GI bleeding Iron deficiency anemia Narcotic abuse Pancreatitis, chronic Peptic ulcer with perforation Pseudoseizures Surgical History History of pancreatectomy Hx of cholecystectomy Hx of splenectomy Family History Other No pertinent family history in first degree relatives Social History Smoking Status: Current every day smoker Cigarettes Per Day: 1 pack a day; Do You Dip or Chew Tobacco: No; Tobacco Cessation Education Requested by Patient: Yes Hx Alcohol Use: No Hx Substance Use: Yes Last Used Substance: Unknown Preferred Language: Danish Communication Ability: Effective 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 Beliefs That Will Affect Care: None marital status: Single Current Living Situation: Parent and Significant Other Other Information That Helps Us Care for You: No Feels Safe at Home: Yes Safety Concerns: Feels Safe At This Time Assistive Devices: None and Glasses Review of Systems Review of Systems: All systems reviewed & are unremarkable except as noted in HPI & below Constitutional: as per Subjective / HPI Physical Exam Physical Exam: Left lower extremity is neurovascular and sensory intact grossly, left buttock 1.5 cm incision with scant drainage, no erythema, edema or fluctuance or induration. Constitutional: WD/WN, vitals as above Results & Data ([facility]) Vital Signs (Past 12 Hours) Vital Signs Temp Pulse Resp BP Pulse Ox 09/26/20 07:11 36.4 C L 76 16 152/90 H 97 Diagnostic Findings ABDOMEN AND PELVIS CT WITH IV CONTRAST CT DOSE: 628.60 mGycm HISTORY: Acute gluteal pain with possible gluteal abscess Gluteal abscess TECHNIQUE: Multiaxial CT images of the abdomen and pelvis were performed following the IV administration of 93 cc of Optiray 320, A dose lowering technique was utilized adhering to the principles of ALARA. COMPARISON STUDY: CT abdomen and pelvis 07/20/2019 FINDINGS: Trace pleural effusions. Mild dependent subsegmental bibasilar atelectasis. There is no pneumatosis or pneumoperitoneum. Pneumobilia with prior cholecystectomy is unchanged suggestive of sphincterotomy. Unenhanced liver is otherwise unremarkable. Splenectomy. There also appears to be postoperative changes of prior distal pancreatic resection. Unremarkable adrenal glands. And the kidneys are unremarkable with a probable cyst of the inferior pole right kidney, 7 mm. No hydronephrosis. Unremarkable urinary bladder. Aorta and IVC are unremarkable. There is no adenopathy. Venous hyperdensities within the left hemipelvis. Postoperative changes of the stomach and small bowel redemonstrated. No bowel obstruction or bowel wall thickening. Normal appendix. Scattered small bowel air-fluid levels with nondilated fluid-filled loops, likely physiologic. There is thinning of the ventral abdominal wall. Subcutaneous edema of the left gluteal distribution. Ill-defined heterogeneity measuring up to approximately 2.9 cm involves the inferior lateral aspect of the left gluteus eric on image 556 of series 102. No opaque foreign body or drainable fluid collection. Small focus of subcutaneous air. No acute fracture. Remote bilateral L5 pars defects with 8 mm anterolisthesis L5 on S1. IMPRESSION: 1. Moderate subcutaneous edema of the upper lateral left thigh and posterolateral left buttock suggests cellulitis. Ill-defined heterogeneity of the inferolateral left gluteus eric is suggestive of myositis versus developing intramuscular abscess. No drainable fluid collection identified. Small focus of gas within the subcutaneous tissues is suggestive of instrumentation versus gas forming organism. 2. No acute intra-abdominal or intrapelvic abnormality identified. 3. Multiple air and fluid-filled nondilated loops of small bowel, likely physiologic. 4. Trace pleural effusions. 5. Chronic postoperative changes as above.
--- NOTE | 2020-09-26 17:12 | Hospitalist Progress Note ---
Date of Service September 26, 2020 Assessment & Plan (1) Left buttock abscess: . Left gluteal abscess had small wound on left buttock area as he used blunted insulin pen needle for insulin administration initially it was a small papule , few days later pain was intensified . went to nearby [facility] status post I and D at [facility] on 09/24 Signed out AMA because he could not get pain medications- pt has severe anxiety disorder /chronic insomnia gets irritated easily , was upset with multiple needle sticks needed for lab draw-pt is a very difficult stick Nasal MRSA negative on IV Zosyn. requested medical reports from [facility]. CT of abdomen /Pelvis at [facility] : 1. Moderate subcutaneous edema of the upper lateral left thigh and posterolateral left buttock suggests cellulitis. Ill-defined heterogeneity of the inferolateral left gluteus eric is suggestive of myositis versus developing intramuscular abscess. No drainable fluid collection identified. Small focus of gas within the subcutaneous tissues is suggestive of instrumentation versus gas forming organism. 2. No acute intra-abdominal or intrapelvic abnormality identified. -orthopedics consulted -no surgical procedure needed , cont IV ABx ID consult with [facility] appreciated , cont on Zosyn , pt can be discharged home with Po Augmentin 2 weeks History of chronic pancreatitis, status post Whipple's procedure x2. -hx of recurrent pancreatitis /required pancreatic resection /splenectomy - underlying genetic mutation /genetic disease on pancreas lipase capsules. no GI symptoms SEVERE ANXIETY DISORDER /DEPRESSION ; hx of assisted anxiety disorder /depression -symptoms worsened with multiple surgeries and medical illness has not seen any Psychiatrist yet was recently seen by his family physician -started on Elavil 25 mg HS pt reports no improvement of symptoms scheduled to see [facility] Psychiatry pt reports poor sleep -chronic insomnia /very irritable , panic attacks Psychiatry consulted -appreciate input started on seroquel History of peptic ulcer disease, -on PPI history of GI bleeding no symptoms avoid antiplatelets and NSAID's on Protonix, , and sucralfate. Diabetes type 1 s/p surgical removal of pancreas Continue his home Lantus. insulin sliding scale. pharmacy following for glycemic management Deep venous thrombosis prophylaxis, ordered SC heparin Admission and Anticipated Discharge Date Admission Date: September 24, 2020 Subjective no fever or chills pain on left buttock area improved denies of panic attack of anxiety Physical Exam Constitutional: WD/WN, vitals as above Eyes: PERRL, conjunctivae normal, anicteric sclerae ENMT: external ear and nose normal, oropharynx normal Neck: trachea midline, no thyromegaly Respiratory: normal respiratory effort, lungs clear to auscultation Cardiovascular: RRR, no murmur, no edema Gastrointestinal (Abdomen): normal bowel sounds, soft, nontender, no hepatosplenomegaly Neurologic: PERRL, EOMI, accommodation nl, no face palsy, no dysarthria Psychiatric: Orientation: alert and oriented x 3 Affect: + anxious affect Results & Data Results & Data ([facility]) Vital Signs (Past 12 Hours) Vital Signs Temp Pulse Resp BP BP Pulse Ox 09/26/20 15:20 36.7 C 96 H 22 138/87 98 09/26/20 07:11 36.4 C L 76 16 152/90 H 97
[2020-09-26] MEDS ORDERED: INSULIN GLARGINE SOLOSTAR 100 UNITS/ML 3 ML PEN SC SCH (21:00)
[2020-09-26] MEDS: QUEtiapine FUMARATE 100 MG TABLET PO SCH (21:10)
[2020-09-27] MEDS: PIPERACILLIN/TAZOBACTAM 3.375 GM in DEXTROSE 5% 100 ML IV SCH ×2 (02:24→09:36)
[2020-09-27] MEDS: HYDROmorphone INJ 1 MG/ML SYRINGE IV PRN ×4 (03:29→21:53)
[2020-09-27] MEDS: oxyCODONE HCL IR 5 MG TAB (IMMEDIATE RELEASE) PO PRN ×3 (06:26→18:32)
[2020-09-27] MEDS ORDERED: HYDROmorphone INJ 1 MG/ML SYRINGE IV PRN (07:52)
[2020-09-27] MEDS: ASCORBIC ACID 500 MG TAB PO SCH (08:06)
[2020-09-27] MEDS: FERROUS SULFATE 325 MG TAB PO SCH (08:07)
[2020-09-27] MEDS: SUCRALFATE 1 GM TAB PO SCH ×4 (08:07→21:06)
[2020-09-27] MEDS: DULoxetine HCL 30 MG CAP PO SCH (08:08)
[2020-09-27] MEDS: PANCREAZE (LIPASE 16,800U) CAP PO SCH ×3 (08:08→17:48)
[2020-09-27] MEDS: PANTOprazole 40 MG TAB PO SCH ×2 (08:09→21:07)
[2020-09-27] MEDS: NICOTINE 21 MG/24 HR TDSY TD SCH (08:09)
[2020-09-27] MEDS ORDERED: lisinopril 2.5 MG TAB PO ONE (08:15)
[2020-09-27] MEDS: INSULIN ASPART 100 UNITS/ML 3 ML PEN SC SCH ×4 (08:55→21:19)
[2020-09-27] MEDS ORDERED: INSULIN GLARGINE SOLOSTAR 100 UNITS/ML 3 ML PEN SC ONE ×2 (09:15→12:45)
--- NOTE | 2020-09-27 09:25 | Pharmacy Report ---
Pharmacy Glycemic Short Note 2 - Date of Service September 27, 2020 - Glycemic Short BSG Results (Last 24 hours): 09/26/20 09/26/20 09/26/20 10:14 12:00 17:11 Glucose 154 H POC Glucose 149 H 89 09/26/20 09/27/20 20:55 08:01 Glucose POC Glucose 127 H 239 H OUTPATIENT ANTIDIABETIC REGIMEN: * Lantus 15 units SC HS + Humalog SSI (CR 1:20 & CF: 40 for BG > 140) * A1c = 7.4% (09/26/20) ASSESSMENT: * Patient received 37 units of insulin yesterday with excellent glycemic control: * 12 units of basal insulin * 25 units of prandial/correctional insulin * BSGs: 116, 149, 89, 127 * Risk factors for insulin resistance remain relatively constant * Continues on zosyn for treatment of left gluteal abscess * Anticipating insulin regimen will need increased for the next 24hrs d/t : * AM Fasting BSG = 239 mg/dL. I suspect patient may have had something to eat prior to BSG check. Fasting of 116 mg/dL yesterday. Lantus dose was decreased yesterday. I have ordered an additional 5 units for this morning for a total of 17 units today. * Yesterday's regimen was 68% bolus insulin, therefore may need to evenly re- distribute regimen 50%:50% basal:prandial to prevent hypo/hyperglycemia PLAN FOR INPATIENT GLYCEMIC CONTROL: * Basal insulin - increase * Additional 5 units of Lantus this AM * Continue Lantus 12 units SQ qAM * Bolus insulin * NovoLog per scale ACHS or Q6hrs while NPO * Goal Range: Low 110 mg/dL - High 140 mg/dL * Correction Factor: 25 mg/dL/unit * Nutritional / Prandial insulin per carb ratio of 1 unit per 8 grams CHO consumed PLAN FOR DISCHARGE: * Patient may require increased doses of insulin until infection is resolved (unsure of exact dose at this time) * Continue to follow up with local Endocrinology group for dose adjustments once discharged * Please note that the plan above was derived based on current level of insulin resistance and hospital stress. These recommendations are appropriate for inpatient admission only. Plan of care upon discharge will need to be reassessed to avoid potential outpatient hypo/hyperglycemia. Thank you.
[2020-09-27] MEDS: QUEtiapine FUMARATE 25 MG TABLET PO PRN (12:13)
[2020-09-27] MEDS ORDERED: hydrALAZINE HCL 20 MG/ML VIAL IV PRN (16:12)
[2020-09-27] MEDS: AMOXICILLIN/CLAVULANATE 875 MG TAB PO SCH (17:49)
[2020-09-27] MEDS ORDERED: INSULIN GLARGINE SOLOSTAR 100 UNITS/ML 3 ML PEN SQ SCH (21:00)
[2020-09-27] MEDS: QUEtiapine FUMARATE 100 MG TABLET PO SCH (21:07)
[2020-09-28] MEDS: HYDROmorphone INJ 1 MG/ML SYRINGE IV PRN (04:18)
[2020-09-28] MEDS: oxyCODONE HCL IR 5 MG TAB (IMMEDIATE RELEASE) PO PRN (06:19)
[2020-09-28 07:05] LABS: Creatinine Clr Calc Pharmacy 111.4 ml/min
--- NOTE | 2020-09-28 07:38 | Hospitalist Progress Note ---
Date of Service September 28, 2020 Assessment & Plan (1) Left buttock abscess: . Left gluteal abscess had small wound on left buttock area as he used blunted insulin pen needle for insulin administration initially it was a small papule , few days later pain was intensified . went to nearby [facility] [place] status post I and D at [facility] on 09/24 Nasal MRSA negative on IV Zosyn. Wound culture reports obtained form [place] : no growth , gram stain : many WBC , no organism CT of abdomen /Pelvis at [facility] : 1. Moderate subcutaneous edema of the upper lateral left thigh and posterolateral left buttock suggests cellulitis. Ill-defined heterogeneity of the inferolateral left gluteus eric is suggestive of myositis versus developing intramuscular abscess. No drainable fluid collection identified. Small focus of gas within the subcutaneous tissues is suggestive of instrumentation versus gas forming organism. 2. No acute intra-abdominal or intrapelvic abnormality identified. -orthopedics consulted -no surgical procedure needed , cont IV ABx ID consult with [facility] appreciated , appreciate input abx changed to PO Augmentin 2 weeks History of chronic pancreatitis, status post Whipple's procedure x2. -hx of recurrent pancreatitis /required pancreatic resection /splenectomy - underlying genetic mutation /genetic disease on pancreas lipase capsules. no GI symptoms SEVERE ANXIETY DISORDER /DEPRESSION ; hx of mcfp anxiety disorder /depression -symptoms worsened with multiple surgeries and medical illness scheduled to see [facility] Psychiatry pt reports poor sleep -chronic insomnia /very irritable , panic attacks Psychiatry consulted -appreciate input started on seroquel -pt reports improvement of symptoms NARCOTIC PAIN MEDS ABUSE : hx of pain meds abuse requesting IV Dilaudid , nursing reports pt appears to be comfortable still asking for pain meds in a frequent basis ordered to limit IV dilaudid utilize NSAID HTN : BP elevated started on ACEI History of peptic ulcer disease, -on PPI history of GI bleeding no symptoms avoid antiplatelets and NSAID's on Protonix, , and sucralfate. Diabetes type 1 s/p surgical removal of pancreas Continue his home Lantus. insulin sliding scale. pharmacy following for glycemic management Deep venous thrombosis prophylaxis, ordered SC heparin DISPOSITION : discharge home when medically stable will need wound clinic follow up Admission and Anticipated Discharge Date Admission Date: September 24, 2020 Subjective late entry for 09/27/20 no fever or chills pain on left buttock wound better walking on hallway Physical Exam Constitutional: WD/WN, vitals as above Eyes: PERRL, conjunctivae normal, anicteric sclerae ENMT: external ear and nose normal, oropharynx normal Neck: trachea midline, no thyromegaly Respiratory: normal respiratory effort, lungs clear to auscultation Cardiovascular: RRR, no murmur, no edema Gastrointestinal (Abdomen): normal bowel sounds, soft, nontender, no hepatosplenomegaly Neurologic: PERRL, EOMI, accommodation nl, no face palsy, no dysarthria Psychiatric: Orientation: alert and oriented x 3 Affect: + anxious affect Results & Data Results & Data ([facility]) Vital Signs (Past 12 Hours) Vital Signs Temp Pulse Resp BP Pulse Ox 09/28/20 07:11 36.6 C 71 16 136/88 98 09/27/20 23:39 36.8 C 71 16 139/82 95
[2020-09-28] MEDS: PANTOprazole 40 MG TAB PO SCH (08:28)
[2020-09-28] MEDS: ASCORBIC ACID 500 MG TAB PO SCH (08:28)
[2020-09-28] MEDS: PANCREAZE (LIPASE 16,800U) CAP PO SCH ×2 (08:28→12:29)
[2020-09-28] MEDS: NICOTINE 21 MG/24 HR TDSY TD SCH (08:29)
[2020-09-28] MEDS: AMOXICILLIN/CLAVULANATE 875 MG TAB PO SCH (08:29)
[2020-09-28] MEDS: FERROUS SULFATE 325 MG TAB PO SCH (08:29)
[2020-09-28] MEDS: DULoxetine HCL 30 MG CAP PO SCH (08:29)
[2020-09-28] MEDS: SUCRALFATE 1 GM TAB PO SCH ×2 (08:29→11:25)
[2020-09-28] MEDS: INSULIN ASPART 100 UNITS/ML 3 ML PEN SC SCH ×2 (08:33→12:30)
[2020-09-28] MEDS ORDERED: HYDROmorphone INJ 0.5 MG/0.5 ML SYR IV PRN (08:36)
[2020-09-28] MEDS ORDERED: KETOROLAC TROMETHAMINE 15 MG/ML VIAL IV PRN (08:36)
[2020-09-28] MEDS ORDERED: INSULIN GLARGINE SOLOSTAR 100 UNITS/ML 3 ML PEN SQ SCH ×2 (09:00)
[2020-09-28] MEDS ORDERED: lisinopril 2.5 MG TAB PO SCH (09:00)
[2020-09-28] MEDS ORDERED: traMADol HCL 50 MG TABLET PO PRN (10:12)
[2020-09-28] MEDS: QUEtiapine FUMARATE 25 MG TABLET PO PRN (10:20)
[2020-09-28 12:36] LABS: Codeine Urine NEGATIVE ng/mL (<50); Hydrocodone Urine NEGATIVE ng/mL (<50); Hydromor Urine 549 ng/mL (<50); Morphine Urine NEGATIVE ng/mL (<50); Norhydrocodone Conf Ur NEGATIVE ng/mL (<50); Noroxycodone Urine 463 ng/mL (<50); Oxycodone Urine 220 ng/mL (<50); Oxymorph Urine 679 ng/mL (<50)
--- NOTE | 2020-09-28 12:50 | Hospitalist Progress Note ---
Date of Service September 28, 2020 Assessment & Plan (1) Left buttock abscess: Left buttock abscess per Dr. Bass's notes: had small wound on left buttock area as he used blunted insulin pen needle for insulin administration initially it was a small papule , few days later pain was intensified . went to nearby [facility] [place] status post I and D at [facility] on 09/24 CT of abdomen /Pelvis at [facility] : 1. Moderate subcutaneous edema of the upper lateral left thigh and posterolateral left buttock suggests cellulitis. Ill-defined heterogeneity of the inferolateral left gluteus eric is suggestive of myositis versus developing intramuscular abscess. No drainable fluid collection identified. Small focus of gas within the subcutaneous tissues is suggestive of instrumentation versus gas forming organism. 2. No acute intra-abdominal or intrapelvic abnormality identified. Wound culture reports obtained form [place] : no growth , gram stain : many WBC , no organism Nasal MRSA negative -orthopedics consulted -no surgical procedure needed , cont IV ABx ID consult with [facility] abx changed to PO Augmentin 2 weeks - stable complete Augmentin po BID for total of 2 weeks antibiotic course ff up with PCP in 1 week History of chronic pancreatitis, status post Whipple's procedure x2. -hx of recurrent pancreatitis /required pancreatic resection /splenectomy - underlying genetic mutation /genetic disease on pancreas lipase capsules. no GI symptoms HTN : BP elevated started on lisinopril 2.5 mg p.o. 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 daily History of pain meds abuse Advised to use Tylenol as needed for pain PDMP queried Patient reports he follows up with Dr. Gilman for Suboxone Advised close outpatient follow-up with Dr. Gilman Diabetes type 1 s/p surgical removal of pancreas Continue usual regimen History of peptic ulcer disease, -on PPI history of GI bleeding no symptoms on Protonix , and sucralfate. DISPOSITION : Discharge to home Follow-up with PCP next week Plan of care discussed with patient in detail and at length All questions were answered He is understanding, agreeable, comfortable with the plan of care Admission and Anticipated Discharge Date Admission Date: September 24, 2020 Subjective Delayed entry Date of service 09/28/2020 Seen with RN at bedside throughout all encounter Patient states that he feels much better overall Left buttock pain also much better No fevers or chills Denies chest pain, dyspnea, palpitations, dizziness No other symptoms States that he is ready and would like to be discharged Review of Systems Review of Systems: All systems reviewed & are unremarkable except as noted in Subjective Physical Exam Physical Exam: General- oriented x 3, not in distress, speaks in sentences with no effort or accessory muscle use Eyes- anicteric Neck- no JVD Lungs- clear breath sounds bilaterally, no rales/wheezes Heart- normal rate, regular rhythm; no murmurs Abdomen- normal bowel sounds, nondistended, soft, nontender Left buttock-small wound, healing well, no surrounding/erythema/edema/induration No bleeding or discharge Extremities- no pretibial edema, no calf tenderness Neuro- alert, oriented x 3; no gross focal neurologic deficits Skin- warm & dry Results & Data Results & Data ([facility]) Vital Signs (Past 12 Hours) Vital Signs Temp Pulse Pulse Resp BP Pulse Ox 09/28/20 12:05 36.6 C 84 71 16 136/88 98 09/28/20 07:11 36.6 C 71 16 136/88 98
--- NOTE | 2020-10-02 15:50 | Discharge Summary ---
Date of Service October 02, 2020 Admission HPI Per Admitting Provider This is a 30-year-old male with past medical history significant for chronic pancreatitis, status post Whipple's procedure x2 with splenectomy, pancreatectomy, and cholecystectomy, history of insulin-dependent diabetes mellitus, pseudoseizures, peptic ulcer disease, GI bleeding, iron deficiency anemia, who presents with left buttocks wound. The patient was in the [facility] yesterday and CT scan and MRI scan showed about 10 x 2 x 4.4 cm left gluteal deep abscess which was drained and plan was to keep him there for a couple of days with IV antibiotics, but the patient asked for Dilaudid and he was not given and he signed out AMA and he comes back here today because of increasing pain in the buttock region. Denies any fever or chills. There is mild serosanguineous drainage seen at the wound site. Denies any fever, chills. No headache, no blurred vision, no earache, no runny nose, no sore throat, no cough, no dysphagia, no chest pain, no shortness of breath, no nausea, no vomiting, no abdominal pain currently. No blood in the stools or black stools. Normal bladder movements. No swelling in the legs, no rash. Currently resting comfortably and hemodynamically stable. Admission Exam Per Admitting Provider GENERAL: The patient is of moderate build, not in acute distress. VITAL SIGNS: Temperature 36.8, pulse 84, respiratory rate 18, blood pressure 160/98, oxygen 95% on room air. HEENT: Pupils equal, round, and reactive to light. NECK: No JVD, no neck masses. CARDIOVASCULAR: S1, S2 heard. Regular rate and rhythm, no murmur, no gallop. RESPIRATORY SYSTEM: Normal AP diameter. No accessory muscle use. No wheezing, no crackles. ABDOMEN: Soft. Bowel sounds present, nontender. No distention. CENTRAL NERVOUS SYSTEM: Cranial nerves II-XII grossly intact, nonfocal. SKIN: Small incision site seen on the left buttocks. The patient is status post I and D yesterday, the site is clean. Mild serosanguineous drainage seen. No erythema seen. EXTREMITIES: No edema, no erythema. Principal Diagnosis Left buttock abscess Discharge Exam General- oriented x 3, not in distress, speaks in sentences with no effort or accessory muscle use Eyes- anicteric Neck- no JVD Lungs- clear breath sounds bilaterally, no rales/wheezes Heart- normal rate, regular rhythm; no murmurs Abdomen- normal bowel sounds, nondistended, soft, nontender Left buttock-small wound, healing well, no surrounding/erythema/edema/induration No bleeding or discharge Extremities- no pretibial edema, no calf tenderness Neuro- alert, oriented x 3; no gross focal neurologic deficits Skin- warm & dry Discharge Data Allergies Allergy/AdvReac Type Severity Reaction Status Date / Time gabapentin Allergy Intermediate Hives Verified 09/24/20 19:43 metoclopramide [From Reglan] Allergy Intermediate Hives Verified 09/24/20 19:43 NSAIDS (Non-Steroidal AdvReac Unknown Ulcers Verified 09/24/20 19:43 Anti-Inflamma Consultations 09/24/20 22:06 ED Decision to Admit Stat 09/25/20 16:08 Consult Orthopedic Surgery Routine 09/25/20 17:26 Consult Health Information Management Routine 09/25/20 18:34 Consult Psychiatry Routine 09/25/20 18:42 Consult Infectious Diseases Routine Ordered Studies 09/25/20 13:56 CT abd pelvis IV con only Routine FINDINGS: Trace pleural effusions. Mild dependent subsegmental bibasilar atelectasis. There is no pneumatosis or pneumoperitoneum. Pneumobilia with prior cholecystectomy is unchanged suggestive of sphincterotomy. Unenhanced liver is otherwise unremarkable. Splenectomy. There also appears to be postoperative changes of prior distal pancreatic resection. Unremarkable adrenal glands. And the kidneys are unremarkable with a probable cyst of the inferior pole right kidney, 7 mm. No hydronephrosis. Unremarkable urinary bladder. Aorta and IVC are unremarkable. There is no adenopathy. Venous hyperdensities within the left hemipelvis. Postoperative changes of the stomach and small bowel redemonstrated. No bowel obstruction or bowel wall thickening. Normal appendix. Scattered small bowel air-fluid levels with nondilated fluid-filled loops, likely physiologic. There is thinning of the ventral abdominal wall. Subcutaneous edema of the left glut eal distribution. Ill-defined heterogeneity measuring up to approximately 2.9 cm involves the inferior lateral aspect of the left gluteus eric on image 556 of series 102. No opaque foreign body or drainable fluid collection. Small focus of subcutaneous air. No acute fracture. Remote bilateral L5 pars defects with 8 mm anterolisthesis L5 on S1. IMPRESSION: 1. Moderate subcutaneous edema of the upper lateral left thigh and posterolateral left buttock suggests cellulitis. Ill-defined heterogeneity of the inferolateral left gluteus eric is suggestive of myositis versus developing intramuscular abscess. No drainable fluid collection identified. Small focus of gas within the subcutaneous tissues is suggestive of instrumentation versus gas forming organism. 2. No acute intra-abdominal or intrapelvic abnormality identified. 3. Multiple air and fluid-filled nondilated loops of small bowel, likely physiologic. 4. Trace pleural effusions. 5. Chronic postoperative changes as above. Hospital Course (1) Left buttock abscess: Left buttock abscess per Dr. Bass's notes: had small wound on left buttock area as he used blunted insulin pen needle for insulin administration initially it was a small papule , few days later pain was intensified . went to nearby [facility] [place] status post I and D at [facility] on 09/24 CT of abdomen /Pelvis at [facility] : 1. Moderate subcutaneous edema of the upper lateral left thigh and posterolateral left buttock suggests cellulitis. Ill-defined heterogeneity of the inferolateral left gluteus eric is suggestive of myositis versus developing intramuscular abscess. No drainable fluid collection identified. Small focus of gas within the subcutaneous tissues is suggestive of instrumentation versus gas forming organism. 2. No acute intra-abdominal or intrapelvic abnormality identified. Wound culture reports obtained form [place] : no growth , gram stain : many WBC , no organism Nasal MRSA negative -orthopedics consulted -no surgical procedure needed , cont IV ABx ID consult with [facility] abx changed to PO Augmentin 2 weeks - stable complete Augmentin po BID for total of 2 weeks antibiotic course ff up with PCP in 1 week History of chronic pancreatitis, status post Whipple's procedure x2. -hx of recurrent pancreatitis /required pancreatic resection /splenectomy - underlying genetic mutation /genetic disease on pancreas lipase capsules. no GI symptoms HTN : BP elevated started on lisinopril 2.5 mg p.o. 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 daily History of pain meds abuse Advised to use Tylenol as needed for pain PDMP queried Patient reports he follows up with Dr. Jack for Suboxone Advised close outpatient follow-up with Dr. Jack Diabetes type 1 s/p surgical removal of pancreas Continue usual regimen History of peptic ulcer disease, -on PPI history of GI bleeding no symptoms on Protonix , and sucralfate. DISPOSITION : Discharge to home Follow-up with PCP next week Plan of care discussed with patient in detail and at length All questions were answered He is understanding, agreeable, comfortable with the plan of care Total Time Total Time Spent Total Time Spent (In Minutes): 40 mins Discharge Plan Discharge Items Patient Disposition: Home - Self-Care Reason For Visit: GLUTEAL ABSCESS Discharge Diagnosis: LEFT GLUTEAL /BUTTOCK ABSCESS TYPE 1 DIABETES DEPRESSION /ANXIETY DISORDER Condition on Discharge: Good Activity: Resume your previous activity Non-emergency contact: Primary Care Provider Call non-emergency contact if: you have any medication questions, your symptoms worsen, your pain is not controlled, your pain is worsening, your pain is unusual for you, your pain is concerning for you, you have a fever, your wound has increased redness, your wound has increased drainage and your wound pain has increased Follow-up/Referrals: Kacie Jurado MD [Hospitalist] - 10/04/20 11:00 am PCP,NO [Primary Care Provider] - Diet: Carb Consistent or DM2 and Heart Healthy Addtl Attending Provider Instructions: PLEASE REVIEW YOUR NEW MEDICATION LIST AND FOLLOW INSTRUCTIONS CAREFULLY. TAKE YOUR MEDICATIONS ONLY DIRECTED. TAKE A PROBIOTIC DAILY FOR AT LEAST 1 MONTH. CALL YOUR PRIMARY CARE PHYSICIAN OR RETURN TO THE ER IMMEDIATELY IF WITH RECURRENCE OF SYMPTOMS, INCLUDING FEVER/CHILLS, INCREASING PAIN/SWELLING/DISCHARGE, DIARRHEA. FOLLOW UP WITH PRIMARY CARE PROVIDER NEXT WEEK OUTLINE ABOVE. FOLLOW UP WITH PSYCHIATRIST NEXT WEEK SCHEDULED. FOLLOW UP WITH DR. JACK SCHEDULED. Pending Studies at Discharge: No Stand-Alone Forms: My [employer], Smoking Cessation Medications and DC Order Prescriptions: New quetiapine 100 mg Tablet 100 mg PO HS Qty: 30 RF: 0 lisinopril 2.5 mg Tablet 2.5 mg PO QAM 10 Days Qty: 10 RF: 0 amoxicillin-pot clavulanate [Augmentin] 875-125 mg Tablet 1 tab PO BIDM 10 Days Qty: 20 RF: 0 Continued Lantus Solostar U-100 Insulin 100 unit/mL (3 mL) insulin pen 15 units SQ HS RF: 0 sucralfate 1 gram tablet 1 g PO ACHS RF: 0 omeprazole 40 mg capsule,delayed release(DR/EC) 40 mg PO BID RF: 0 ascorbic acid (vitamin C) [Vitamin C] 500 mg tablet 500 mg PO DAILY RF: 0 ferrous sulfate 325 mg (65 mg iron) tablet 325 mg PO QAM RF: 0 nicotine 21 mg/24 hr Patch 24 Hour 1 patch TRANSDERMAL DAILY RF: 0 polyethylene glycol 3350 [Miralax] 17 gram/dose Powder 17 g PO DAILY PRN (Reason: Constipation) RF: 0 insulin lispro [Humalog KwikPen Insulin] 100 unit/mL insulin pen See Rx Instructions .ROUTE .COMPLEX RF: 0 duloxetine 30 mg capsule,delayed release(DR/EC) 30 mg PO DAILY RF: 0 Zenpep 40,000-126,000- 168,000 unit capsule,delayed release(DR/EC) See Rx Instructions .ROUTE .COMPLEX RF: 0 Discontinued amitriptyline 25 mg tablet 25 mg PO HS RF: 0 Discharge Orders: Discharge Order (Routine); Ordered 09/28/20 Ordered By: Ja Lombardi/Other Patient Handouts: Amoxicillin Clavulanic Acid tablets Admission Data Admit Date/Time: 09/24/20 22:59 Attending Provider: Ja Bach Admit Provider: Shivam Mckenna Primary Care Provider: PCP,NO Other Providers: Shivam Mckenna ; Jeff Lawson ; Jorge Joshua ; Carlos Young ; Pretty Diego ; Hong Driscoll ; Cat Berg ; Bobby Kirby ; Kike Kim ; Miki Mary ; Kike Pepe ; Antonio Zhao. ; Miki Kc ; Iggy Zuleta ; Gabe Franco ; Gagandeep Omalley ; Dylan Torres ; Clovis Ponce ; Cat Casarez ; Evaristo Martinez ; Fly Marti ; Estrella Chappell ; Blas Reddy ; Cassandra Lugo ; Sugar Nuñez ; Fareed Sanchez ; Carl Damon ; Steven Laguerre I. ; Zhang Dodd II ; Rupa Mcqueen ; Kike Mitchell ; Shani Bass. Other Interventions: Discharge Summary Assessment (RN) Last Done: 09/28/20 12:05 PSY Interdisciplinary Discharge Planning Last Done: 09/27/20 10:38
== END 2020-09-28 13:46 | disposition home or self-care (01) | DRG 603 ==
LOC: ED 18:30 → 3E 22:59 → SUATTDRO 22:59 → 3E 23:33

== ENCOUNTER 2020-10-09 12:30 | Inpatient (IN) ==
[2020-10-09] MEDS ORDERED: SODIUM CHLORIDE 0.9% 1000ML 1,000 ML IV SCH (13:45)
[2020-10-09] MEDS ORDERED: SODIUM CHLORIDE 0.9% 250 ML IV PRN (13:45)
[2020-10-09] MEDS ORDERED: PANTOprazole 80 MG in DEXTROSE 5% 100 ML IV ONE (13:45)
[2020-10-09] MEDS ORDERED: HYDROmorphone INJ 0.5 MG/0.5 ML SYR IV ONE (13:45)
[2020-10-09] MEDS ORDERED: FAMOTIDINE 20MG IV PUSH 20 MG/5 ML SYR IV STA (13:45)
[2020-10-09] MEDS ORDERED: ONDANSETRON INJ 2 MG/ML 2 ML VIAL IV STA ×2 (13:45→14:53)
[2020-10-09 13:54] LABS: Basophils # (auto) 0.15 K/uL (0-0.2); Basophils % (auto) 0.9 %; Eosinophils # (auto) 0.01 K/uL (0-0.5); Eosinophils % (auto) 0.1 %; Hematocrit (blood only) 39.2 % (42-52); Hemoglobin 11.6 g/dL (14.0-18.0); Immature Granulocytes # (auto) 0.08 K/uL (0.00-0.02); Immature Granulocytes % (auto) 0.5 %; Lymphocytes # (auto) 1.99 K/uL (1.2-3.4); Lymphocytes % (auto) 11.5 %; Mean Corpuscular Hemoglobin 22.1 pg (25-34); Mean Corpuscular Hgb Conc 29.6 g/dL (32-36); Mean Corpuscular Volume 74.5 fL (80-100); Monocytes # (auto) 1.49 K/uL (0.11-0.59); Monocytes % (auto) 8.6 %; Neutrophils # (auto) 13.61 K/uL (1.4-6.5); Neutrophils % (auto) 78.4 %; Platelet Count 843 K/uL (130-400); RDW Coefficient of Variation 24.8 % (11.5-14.5); Red Blood Count 5.26 M/uL (4.7-6.1); White Blood Count 17.33 K/uL (4.8-10.8)
[2020-10-09] MEDS ORDERED: OCTREOTIDE ACETATE 500 MCG in 0.9 % SODIUM CHLORIDE 100 ML IV STA (13:54)
[2020-10-09] MEDS ORDERED: OCTREOTIDE ACETATE 50 MCG in SYRINGE 9.5 ML IV STA (13:54)
--- NOTE | 2020-10-09 13:59 | Emergency Department Note ---
History of Present Illness General Chief complaint: Abdominal Pain Stated complaint: ABDOMINAL PAIN, PUKING BLOOD Time Seen by Provider: 10/09/20 13:36 Source: patient History of Present Illness Provider complaint: Abdominal pain Onset (ago): hour(s) Location: abdomen Radiation: non-radiation Pain Consistency: + constant Maximum Pain Intensity: 8 Quality: + other (Squeezing) Relieved By: + none Associated symptoms: + nausea/vomiting (Coffee grounds); no chest pain, no cough, no fever/chills and no shortness of breath This is a 30-year-old male with a history of known gastric ulcers presenting with vomiting and abdominal pain. The patient states that he woke up this morning with epigastric abdominal pain. He describes it as a squeezing. He rates it an 8 out of 10 in severity. No modifying factors. It is associated with coffee-ground emesis x3. He did not notice any bright red blood but thought there might be some dark blood. He has had no melanotic stools or re ctal bleeding. He does not drink alcohol he did not eat anything unusual last night. 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 He has had upper GI bleeding in the past and has required transfusions. He does feel lightheaded. He denies any fever, cough or cold symptoms, chest pain, shortness of breath or urinary symptoms. Home Medications Home Medications Medication Instructions Recorded Confirmed Type insulin glargine 100 unit/mL (3 15 units SQ HS ml 01/14/20 10/09/20 History mL) subcutaneous pen Zenpep See Rx Instructions .ROUTE .COMPLEX 09/24/20 10/09/20 History ascorbic acid (vitamin C) [Vitamin 500 mg PO QAM 09/24/20 10/09/20 History C] duloxetine 30 mg PO QAM 09/24/20 10/09/20 History ferrous sulfate 325 mg PO QAM 09/24/20 10/09/20 History insulin lispro [Humalog KwikPen See Rx Instructions .ROUTE .COMPLEX 09/24/20 10/09/20 History Insulin] nicotine 1 patch TRANSDERMAL DAILY 09/24/20 10/09/20 History omeprazole 40 mg PO BID 09/24/20 10/09/20 History polyethylene glycol 3350 [Miralax] 17 g PO DAILY PRN 09/24/20 10/09/20 History sucralfate 1 g PO ACHS 09/24/20 10/09/20 History quetiapine 100 mg PO HS #30 tab 09/28/20 10/09/20 Rx Allergies Allergy/AdvReac Type Severity Reaction Status Date / Time gabapentin Allergy Intermediate Hives Verified 10/09/20 15:00 metoclopramide [From Reglan] Allergy Intermediate Hives Verified 10/09/20 15:00 NSAIDS (Non-Steroidal AdvReac Unknown Ulcers Verified 10/09/20 15:00 Anti-Inflamma Past Med/Surg History Medical History Diabetes type 1, uncontrolled GI bleeding Iron deficiency anemia Narcotic abuse Pancreatitis, chronic Peptic ulcer with perforation Pseudoseizures Surgical History History of pancreatectomy Hx of cholecystectomy Hx of splenectomy Family History (Updated 10/09/20 @ 15:40 by Yomi Lemon DO) Father Healthy adult Mother Healthy adult Brother Healthy adult Other No pertinent family history in first degree relatives Social History Smoking Status: Current every day smoker Cigarettes Per Day: 1 pack a day; Hx Alcohol Use: No Hx Substance Use: Yes Last Used Substance: Unknown Preferred Language: Turkmen Communication Ability: Effective Tie Loader Required: No Beliefs That Will Affect Care: None marital status: Single Current Living Situation: Parent and Significant Other Feels Safe at Home: Yes Assistive Devices: Glasses Review of Systems See HPI for pertinent positives & negatives. and A total of 10 systems reviewed and were otherwise negative Physical Exam Vital Signs Vital Signs - 24 hr 10/09/20 12:34 10/09/20 13:35 10/09/20 13:37 Temperature 36.9 C Temperature Source Oral Pulse Rate 122 H 100 H 108 H Pulse Rate from SpO2 Sensor Respiratory Rate 20 24 21 Respiratory Effort / Characteristics Non-Labored Spontaneous Respiratory Depth Normal Respiratory Pattern Regular Blood Pressure 130/86 141/71 H Blood Pressure Mean 100 95 Pulse Oximetry 98 Oxygen Delivery Method Room Air Sepsis Recent Fever Within 48 Hours No Sepsis New/Unexplained Change in Mental Status N/A Sepsis Action Taken by Nursing No Action Required 10/09/20 13:45 10/09/20 14:00 10/09/20 14:30 Temperature Temperature Source Pulse Rate 103 H 86 Pulse Rate from SpO2 Sensor Respiratory Rate 17 22 Respiratory Effort / Characteristics Respiratory Depth Respiratory Pattern Blood Pressure 153/77 H Blood Pressure Mean 96 Pulse Oximetry Oxygen Delivery Method Room Air Sepsis Recent Fever Within 48 Hours Sepsis New/Unexplained Change in Mental Status Sepsis Action Taken by Nursing 10/09/20 14:46 10/09/20 15:00 10/09/20 15:01 Temperature Temperature Source Pulse Rate 96 H 86 82 Pulse Rate from SpO2 Sensor 95 H 85 82 Respiratory Rate 19 22 Respiratory Effort / Characteristics Respiratory Depth Respiratory Pattern Blood Pressure 140/74 Blood Pressure Mean 137 114 Pulse Oximetry 98 97 97 Oxygen Delivery Method Sepsis Recent Fever Within 48 Hours Sepsis New/Unexplained Change in Mental Status Sepsis Action Taken by Nursing 10/09/20 15:30 10/09/20 15:51 Temperature Temperature Source Pulse Rate 98 H 92 H Pulse Rate from SpO2 Sensor 99 H 94 H Respiratory Rate 23 Respiratory Effort / Characteristics Respiratory Depth Respiratory Pattern Blood Pressure 142/74 H Blood Pressure Mean 108 Pulse Oximetry 100 98 Oxygen Delivery Method Sepsis Recent Fever Within 48 Hours Sepsis New/Unexplained Change in Mental Status Sepsis Action Taken by Nursing Constitutional: Vital signs reviewed. Eyes: Pupils are equal round reactive to light. Conjunctiva are noninjected. ENT: Pharynx is clear without erythema or exudate. Mucous membranes are moist. Neck supple without meningeal signs. Respiratory: Clear to auscultation bilaterally. Breath sounds are equal bilaterally. Cardiovascular: Tachycardic. Regular rhythm. Heart rate is 104. GI: Numbness in the epigastrium. Midline healed incision with reducible incisional hernia. Bowel sounds are present. Musculoskeletal: No peripheral edema. No lower extremity tenderness. Integumentary: No cyanosis. or jaundice. Neurological: The patient is awake and alert. No focal deficits. Psychiatric: Normal affect. Not anxious appearing. Course Administered Medications Sodium Chloride (Nss) 250 mls @ 15 mls/hr IV .[id number] PRN PRN Reason: For Transfusion Stop: 10/09/20 23:47 Last Admin: 10/09/20 14:46 Dose: 15 mls/hr Documented by: [id number] Octreotide Acetate 500 mcg/ (Sodium Chloride) 105 mls @ 5.25 mls/hr IV .Q20H STA Stop: 10/10/20 09:53 Last Admin: 10/09/20 14:25 Dose: 25 mcg/hr, 5.3 mls/hr Documented by: [id number] Discontinued Medications Hydromorphone HCl (Hydromorphone Inj 0.5 Mg/0.5 Ml Syr) 0.5 mg IV ONE ONE Stop: 10/09/20 13:46 Last Admin: 10/09/20 13:59 Dose: 0.5 mg Documented by: [id number] Hydromorphone HCl (Hydromorphone Inj 0.5 Mg/0.5 Ml Syr) 0.5 mg IV NOW STA Stop: 10/09/20 14:54 Last Admin: 10/09/20 15:27 Dose: 0.5 mg Documented by: [id number] Hydromorphone HCl (Hydromorphone Inj 0.5 Mg/0.5 Ml Syr) 0.5 mg IV NOW STA Stop: 10/09/20 16:22 Last Admin: 10/09/20 16:35 Dose: 0.5 mg Documented by: [id number] Sodium Chloride (Nss 1000ml) 1,000 mls @ 999 mls/hr IV .Q1H1M DWIGHT Stop: 10/09/20 14:45 Last Infusion: 10/09/20 15:00 Dose: 0 mls/hr Documented by: [id number] Admin: 10/09/20 13:59 Dose: 999 mls/hr Documented by: [id number] Pantoprazole Sodium 40 mg/ (Dextrose) 100 mls @ 20 mls/hr IV Q5H DWIGHT Stop: 10/09/20 18:44 Last Admin: 10/09/20 14:45 Dose: 8 mg/hr, 20 mls/hr Documented by: [id number] Pantoprazole Sodium 80 mg/ (Dextrose) 100 mls @ 400 mls/hr IV NOW ONE Stop: 10/09/20 13:59 Last Infusion: 10/09/20 15:00 Dose: 0 mls/hr Documented by: [id number] Admin: 10/09/20 14:45 Dose: 400 mls/hr Documented by: [id number] Famotidine (Pepcid 20mg Iv Push) 20 mg in 5 mls @ 2.5 mls/min IV NOW STA Stop: 10/09/20 13:46 Last Admin: 10/09/20 13:59 Dose: 2.5 mls/min Documented by: [id number] Ioversol (Ioversol 100ml) 94 ml IV ONCE ONE Stop: 10/09/20 14:44 Last Admin: 10/09/20 14:43 Dose: 94 ml Documented by: [id number] Octreotide Acetate (Octreotide Bolus From Bag) 50 mcg IV ONE ONE Stop: 10/09/20 14:16 Last Admin: 10/09/20 14:25 Dose: 50 mcg Documented by: [id number] Ondansetron HCl (Ondansetron Inj 2 Mg/Ml 2 Ml Vial) 4 mg IV ONE STA Stop: 10/09/20 13:46 Last Admin: 10/09/20 13:59 Dose: 4 mg Documented by: [id number] Ondansetron HCl (Ondansetron Inj 2 Mg/Ml 2 Ml Vial) 4 mg IV NOW STA Stop: 10/09/20 14:54 Last Admin: 10/09/20 15:27 Dose: 4 mg Documented by: [id number] Critical Care Time Critical Care Time: Yes Total Critical Care Time: 40 I have personally spent approximately 40 minutes of critical care time in the direct management of this patient. This includes bedside care, interpretation of diagnostic studies, and testing, discussion with consultants, patient, and family members, and other required patient management activities. These minutes are in excess of all separately billable procedures. Medical Decision Making Differential Diagnosis Upper GI bleed, gastric ulcer, gastric perforation, anemia, hematemesis Medical Records Attestation: I reviewed the patient's medical records. The [facility] where he had injections of epinephrine as well as surgical clips placed. Home Medications Current Medication List: was personally reviewed by me Laboratory Data Attestation: I reviewed the patient's lab results. Result diagrams: 10/09/20 13:05 10/09/20 14:25 Lab Results 10/09/20 10/09/20 10/09/20 Range/Units 13:05 13:05 13:05 WBC 17.33 H (4.8-10.8) K/uL RBC 5.26 (4.7-6.1) M/uL Hgb 11.6 L (14.0-18.0) g/dL Hct 39.2 L (42-52) % MCV 74.5 L (80-100) fL MCH 22.1 L (25-34) pg MCHC 29.6 L (32-36) g/dL RDW Std Deviation 67.0 H (36.4-46.3) fL RDW Coeff of Tomas 24.8 H (11.5-14.5) % Plt Count 843 H (130-400) K/uL MPV 10.0 (7.4-10.4) fL Immature Gran % (Auto) 0.5 % Neut % (Auto) 78.4 % Lymph % (Auto) 11.5 % [place] % (Auto) 8.6 % Eos % (Auto) 0.1 % Baso % (Auto) 0.9 % Neut # (Auto) 13.61 H (1.4-6.5) K/uL Lymph # (Auto) 1.99 (1.2-3.4) K/uL [place] # (Auto) 1.49 H (0.11-0.59) K/uL Eos # (Auto) 0.01 (0-0.5) K/uL Baso # (Auto) 0.15 (0-0.2) K/uL Immature Gran # (Auto) 0.08 H (0.00-0.02) K/uL Polychromasia 1+ Anisocytosis Present Microcytosis Present Target Cells 2+ Craft-Cade Bodies 1+ Echinocytes 1+ PT 10.2 (9.0-12.0) Seconds INR 1.0 (0.9-1.1) APTT 23.1 (21.0-31.0) Seconds PTT Ratio 0.8 Sodium 130 L (136-145) mmol/L Potassium (3.5-5.1) mmol/L Chloride 101 (98-107) mmol/L Carbon Dioxide 27 (21-32) mmol/L Anion Gap 2.0 L (3-11) BUN 11 (7-18) mg/dl Creatinine 1.47 H (0.6-1.4) mg/dl Est Cr Clr Drug Dosing 76.6 ml/min Est GFR ( Amer) 73.7 Est GFR (Non-Af Amer) 63.6 BUN/Creatinine Ratio 7.7 L (10-20) Glucose 265 H (70-99) mg/dl Calcium 9.1 (8.5-10.1) mg/dl Total Bilirubin 0.4 (0.2-1) mg/dl AST (15-37) U/L ALT 86 H (12-78) U/L Alkaline Phosphatase 139 H (45-117) U/L Total Protein 8.9 H (6.4-8.2) gm/dl Albumin 3.5 (3.4-5.0) gm/dl Globulin 5.4 H (2.5-4.0) gm/dl Albumin/Globulin Ratio 0.6 L (0.9-2) COVID-19 Eval Order SARS-CoV-2, RNA, NAAT (NEGATIVE) Blood Type Blood Type Recheck Antibody Screen Crossmatch 10/09/20 10/09/20 10/09/20 Range/Units 14:11 14:25 14:29 WBC (4.8-10.8) K/uL RBC (4.7-6.1) M/uL Hgb (14.0-18.0) g/dL Hct (42-52) % MCV (80-100) fL MCH (25-34) pg MCHC (32-36) g/dL RDW Std Deviation (36.4-46.3) fL RDW Coeff of Tomas (11.5-14.5) % Plt Count (130-400) K/uL MPV (7.4-10.4) fL Immature Gran % (Auto) % Neut % (Auto) % Lymph % (Auto) % [place] % (Auto) % Eos % (Auto) % Baso % (Auto) % Neut # (Auto) (1.4-6.5) K/uL Lymph # (Auto) (1.2-3.4) K/uL [place] # (Auto) (0.11-0.59) K/uL Eos # (Auto) (0-0.5) K/uL Baso # (Auto) (0-0.2) K/uL Immature Gran # (Auto) (0.00-0.02) K/uL Polychromasia Anisocytosis Microcytosis Target Cells Craft-Cade Bodies Echinocytes PT (9.0-12.0) Seconds INR (0.9-1.1) APTT (21.0-31.0) Seconds PTT Ratio Sodium (136-145) mmol/L Potassium 4.2 (3.5-5.1) mmol/L Chloride (98-107) mmol/L Carbon Dioxide (21-32) mmol/L Anion Gap (3-11) BUN (7-18) mg/dl Creatinine (0.6-1.4) mg/dl Est Cr Clr Drug Dosing ml/min Est GFR ( Amer) Est GFR (Non-Af Amer) BUN/Creatinine Ratio (10-20) Glucose (70-99) mg/dl Calcium (8.5-10.1) mg/dl Total Bilirubin (0.2-1) mg/dl AST 46 H (15-37) U/L ALT (12-78) U/L Alkaline Phosphatase (45-117) U/L Total Protein (6.4-8.2) gm/dl Albumin (3.4-5.0) gm/dl Globulin (2.5-4.0) gm/dl Albumin/Globulin Ratio (0.9-2) COVID-19 Eval Order SARS-CoV-2, RNA, NAAT (NEGATIVE) Blood Type A Positive Blood Type Recheck A Positive Antibody Screen NEGATIVE Crossmatch See Detail 10/09/20 10/09/20 Range/Units 15:30 15:30 WBC (4.8-10.8) K/uL RBC (4.7-6.1) M/uL Hgb (14.0-18.0) g/dL Hct (42-52) % MCV (80-100) fL MCH (25-34) pg MCHC (32-36) g/dL RDW Std Deviation (36.4-46.3) fL RDW Coeff of Tomas (11.5-14.5) % Plt Count (130-400) K/uL MPV (7.4-10.4) fL Immature Gran % (Auto) % Neut % (Auto) % Lymph % (Auto) % [place] % (Auto) % Eos % (Auto) % Baso % (Auto) % Neut # (Auto) (1.4-6.5) K/uL Lymph # (Auto) (1.2-3.4) K/uL [place] # (Auto) (0.11-0.59) K/uL Eos # (Auto) (0-0.5) K/uL Baso # (Auto) (0-0.2) K/uL Immature Gran # (Auto) (0.00-0.02) K/uL Polychromasia Anisocytosis Microcytosis Target Cells Craft-Cade Bodies Echinocytes PT (9.0-12.0) Seconds INR (0.9-1.1) APTT (21.0-31.0) Seconds PTT Ratio Sodium (136-145) mmol/L Potassium (3.5-5.1) mmol/L Chloride (98-107) mmol/L Carbon Dioxide (21-32) mmol/L Anion Gap (3-11) BUN (7-18) mg/dl Creatinine (0.6-1.4) mg/dl Est Cr Clr Drug Dosing ml/min Est GFR ( Amer) Est GFR (Non-Af Amer) BUN/Creatinine Ratio (10-20) Glucose (70-99) mg/dl Calcium (8.5-10.1) mg/dl Total Bilirubin (0.2-1) mg/dl AST (15-37) U/L ALT (12-78) U/L Alkaline Phosphatase (45-117) U/L Total Protein (6.4-8.2) gm/dl Albumin (3.4-5.0) gm/dl Globulin (2.5-4.0) gm/dl Albumin/Globulin Ratio (0.9-2) COVID-19 Eval Order Covid19 [facility] SARS-CoV-2, RNA, NAAT NEGATIVE (NEGATIVE) Blood Type Blood Type Recheck Antibody Screen Crossmatch Imaging Data Radiologist's Impression: ABDOMEN AND PELVIS CT WITH IV CONTRAST CT DOSE: 368.80 mGy.cm HISTORY: Acute epigastric abdominal pain epigastric pain eval for perf TECHNIQUE: Multiaxial CT images of the abdomen and pelvis were performed following the IV administration of 94 cc of Optiray 320, A dose lowering technique was utilized adhering to the principles of ALARA. COMPARISON STUDY: CT abdomen and pelvis 09/25/2020 FINDINGS: Imaged inferior cardiac chambers are unremarkable. There is mild s ubsegmental bibasilar atelectasis. No pneumatosis or pneumoperitoneum. Trace pneumobilia within the left hepatic lobe, image 111 series 3, decreased from comparison. Liver is otherwise unremarkable. Cholecystectomy. Patency of the hepatic and portal veins. Surgically absent spleen with left upper quadrant surgical clips. Prior distal pancreatic resection with unremarkable adrenal glands. Kidneys are within normal limits. Probable cyst of the inferior pole right kidney, 7 mm. Moderate urinary bladder distention. The aorta and IVC are unremarkable. No adenopathy. Postoperative changes of the stomach and small bowel redemonstrated. The visualized appendix appears noninflamed. Fluid-filled nondilated loops of small bowel within central abdomen are likely physiologic. Postoperative changes of the ventral abdominal wall with thinning of the rectus sheath. Mild gynecomastia. Resolution of the previously noted inflammatory changes of the left gluteal tissues. Remote bilateral L5 pars defects with grade 1 anterolisthesis L5 on S1. IMPRESSION: 1. No bowel obstruction or bowel wall thickening. The visualized appendix appears noninflamed. 2. Extensive postoperative changes as above. 3. Cholecystectomy with minimal pneumobilia. 4. Resolution of the previous noted inflammatory changes of the left gluteal tissues. ACT 112: Negative or not required by law. The above report was generated using voice recognition software. It may contain grammatical, syntax or spelling errors. Electronically signed by: Jorge Alberto Moy M.D. 10/09/2020 2:54 PM ECG Data Attestation: I personally reviewed and interpreted this ECG as follows: Indication: + abdominal pain Rate (beats per minute): 81 Rhythm: + normal sinus ECG [place]: + Normal ECG ST segments: no ST elevation ECG Findings: no PVCs MDM Narrative I did evaluate the patient as noted above. He is presenting with what appears to be an upper GI bleed. He has had several ulcers in the past involving his gastrojejunostomy. 2 large-bore IV access was established. I did place an order for continuous cardiac monitoring. The monitor showed normal sinus rhythm at a rate of 99 bpm. I did order and personally review the patient's 12-lead EKG as described above. He has no acute ischemic changes. I did treat the patient with Dilaudid 0.5 mg IV and Zofran 4 mg IV. He was given a liter normal saline IV. I did start him on a Protonix drip with a 80 mg bolus. I also s tarted him on on octreotide drip with a 50 mcg bolus. I did order and review the patient's blood work as noted in the electronic medical record. His white count is over 17,000. His hemoglobin is 11.6 which is up from his previous visit. Creatinine is elevated at 1.47. Sodium is 130. Glucose is elevated at 265. I did reevaluate the patient. He is no longer tachycardic. He is hypertensive. He continues to have pain and nausea. He was given additional dose of Dilaudid 0.5 mg IV and Zofran 4 mg IV. I did order a CT of the abdomen and pelvis. I did review the images myself as well as the radiology report as described above. There is no evidence of perforation. He has extensive post operative changes without signs of complication. I did reassess the patient. He is feeling better. I did discuss the test results with the patient and recommended hospitalization. I did discuss the case with the cigar head puncher on-call, Dr. Hills, who did not feel the patient needed to be emergently transferred and would see the patient in the hospital. I did discuss the case with Dr. Lemon and the case loader operator. He was admitted to the hospital. The patient did request additional pain medicine before going to the floor and was given Dilaudid 0.5 mg IV. Impression & Plan Hematemesis, Abdominal pain, Anemia, Acute hyperglycemia, Leukocytosis, Hyponatremia Discharge Plan Visit Data Chief Complaint: Abdominal Pain Stated Complaint: ABDOMINAL PAIN, PUKING BLOOD ED Provider: Hong Alvarado Discharge Problem: Hematemesis, Abdominal pain, Anemia, Acute hyperglycemia, Leukocytosis, Hyponatremia Discharge Instructions Interventions: ED Discharge Assessment Last Done: 10/09/20 17:57 Discharge Problem: Hematemesis Qualifiers: Nausea presence: with nausea Qualified Code(s): K92.0 - Hematemesis Abdominal pain Qualifiers: Abdominal location: epigastric Qualified Code(s): R10.13 - Epigastric pain Anemia Qualifiers: Anemia type: unspecified type Qualified Code(s): D64.9 - Anemia, unspecified Leukocytosis Qualifiers: Leukocytosis type: unspecified Qualified Code(s): D72.829 - Elevated white blood cell count, unspecified
[2020-10-09 14:01] LABS: Partial Thromboplastin Ratio 0.8; Partial Thromboplastin Time 23.1 Seconds (21.0-31.0); Prothrombin Time 10.2 Seconds (9.0-12.0)
[2020-10-09] MEDS ORDERED: OCTREOTIDE BOLUS FROM BAG IV ONE (14:15)
[2020-10-09 14:17] LABS: Albumin Globulin Ratio 0.6 (0.9-2); Albumin Level 3.5 gm/dl (3.4-5.0); BUN Creatinine Ratio 7.7 (10-20); Bilirubin,Total 0.4 mg/dl (0.2-1); Calcium 9.1 mg/dl (8.5-10.1); Creatinine Clr Calc Pharmacy 76.6 ml/min; Est GFR (African American) 73.7; Est GFR (Non-African American) 63.6; Globulin 5.4 gm/dl (2.5-4.0); Total Protein 8.9 gm/dl (6.4-8.2)
[2020-10-09 14:29] LABS: Anisocytosis Present; Echinocytes 1+; Howell-Jolly Bodies 1+; Microcytosis Present; Polychromasia 1+; Target Cells 2+
[2020-10-09] MEDS ORDERED: IOVERSOL 100ml IV ONE (14:43)
[2020-10-09] MEDS: PANTOprazole 40 MG in DEXTROSE 5% 100 ML IV SCH ×2 (14:45→19:49)
[2020-10-09 14:49] LABS: Potassium 4.2 mmol/L (3.5-5.1)
[2020-10-09] MEDS ORDERED: HYDROmorphone INJ 0.5 MG/0.5 ML SYR IV STA ×2 (14:53→16:21)
--- NOTE | 2020-10-09 14:55 | CT Scan Report ---
ABDOMEN AND PELVIS CT WITH IV CONTRAST CT DOSE: 368.80 mGy.cm HISTORY: Acute epigastric abdominal pain epigastric pain eval for perf TECHNIQUE: Multiaxial CT images of the abdomen and pelvis were performed following the IV administrat ion of 94 cc of Optiray 320, A dose lowering technique was utilized adhering to the principles of AL MICHAEL. COMPARISON STUDY: CT abdomen and pelvis 09/25/2020 FINDINGS: Imaged inferior cardiac chambers are unremarkable. There is mild subsegmental bibasilar ate lectasis. No pneumatosis or pneumoperitoneum. Trace pneumobilia within the left hepatic lobe, image 1 11 series 3, decreased from comparison. Liver is otherwise unremarkable. Cholecystectomy. Patency of the hepatic and portal veins. Surgically absent spleen with left upper quadrant surgical clips. Prior distal pancreatic resection with unremarkable adrenal glands. Kidneys are within normal limits. Prob able cyst of the inferior pole right kidney, 7 mm. Moderate urinary bladder distention. The aorta and IVC are unremarkable. No adenopathy. Postoperative changes of the stomach and small bowel redemonstrated. The visualized appendix appears noninflamed. Fluid-filled nondilated loops of small bowel within central abdomen are likely physiolog ic. Postoperative changes of the ventral abdominal wall with thinning of the rectus sheath. Mild gyne comastia. Resolution of the previously noted inflammatory changes of the left gluteal tissues. Remote bilateral L5 pars defects with grade 1 anterolisthesis L5 on S1. IMPRESSION: 1. No bowel obstruction or bowel wall thickening. The visualized appendix appears noninflamed. 2. Extensive postoperative changes as above. 3. Cholecystectomy with minimal pneumobilia. 4. Resolution of the previous noted inflammatory changes of the left gluteal tissues. ACT 112: Negative or not required by law. The above report was generated using voice recognition software. It may contain grammatical, syntax o r spelling errors. Electronically signed by: Jorge Alberto Moy M.D. 10/09/2020 2:54 PM
--- NOTE | 2020-10-09 15:42 | History & Physical Report ---
Date of Service October 09, 2020 Assessment & Plan (1) GI bleed: (2) Acute blood loss anemia: (3) Epigastric abdominal pain: (4) Duodenal ulcer: (5) Diabetes type 1, uncontrolled: (6) Hyponatremia: Admit inpatient to PCU, GI evaluation, IV fluids, octreotide and PPI drip, n.p.o. except chips and sips, pain control, patient does have a history of narcotic abuse. Basal Lantus and sliding scale. Accu-Cheks every 4. Pharmacy to control sugars. ROS-No Headache, No Visual Changes, positive nausea, positive vomiting, No Fever, No Chills, No Neck Pain or Stiffness, No Chest Pain, No Palpitations, No SOB, No CURTIS, No Cough, No Sputum, No Wheezing, positive epigastric abdominal Pain, No Diarrhea, positive hematemesis, No Hemoptysis, No Unexpected Weight Loss, No Flank pain, positive melena, No Hematochezia, No Frequency, No Urgency, No Burning, No Hematuria, No Rashes, No Diaphoresis. Appetite is Normal Physical Exam Gen-AAO x 3, mild distress, Afebrile, fit Head-NCAT, EOMI, PERRLA, Anicteric Sclera, No Posterior Pharyngeal Erythema Neck-Supple, No JVD, No Thyromegaly, No Masses, No LAD, No Bruits Lungs-Clear to Auscultation Bilaterally, No Rales, No Rhonchi, No Wheezing, No Crepitus Chest-No S4, +S1, +S2, No S3, No Murmurs, No Rubs, No Gallops, No Ectopy Abdomen-Soft, Bowel Sounds Present, tender epigastric area, Non Distended, No Hepatomegaly, No Splenomegaly, No Palpable Masses, No Rebound, No Rigidity, positive guarding Musculoskeletal-Full Range of Motion Bilaterally, No CVAT Extremities-No Cyanosis, No Clubbing, No Edema Nuero-Cranial Nerves II-XII grossly intact, Motor WNL, DTRs WNL, Strength WNL, Non Focal Psych-Normal Mood History of Present Illness Chief Complaint: GI Bleed and Abd pain Primary Care Provider: NO PCP 30-year-old male with a past medical history of type 1 diabetes, GI bleeding, iron deficiency anemia, narcotic abuse, pancreatitis, peptic ulcer perforation and pseudoseizures presents with severe epigastric abdominal pain that started today. He says it is an 8 out of 10 currently in the epigastric area and he complains of having black stool and coffee-ground emesis today. 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 He is on a triple drug regimen and is monitored by GI as an outpatient. Currently his hemoglobin is 11.6 and his CAT scan shows no abdominal perforation. He was placed on octreotide and PPI drip by the ER physician and Dr. Hills from GI said he felt comfortable with removing here. Allergies Allergy/AdvReac Type Severity Reaction Status Date / Time gabapentin Allergy Intermediate Hives Verified 10/09/20 15:00 metoclopramide [From Reglan] Allergy Intermediate Hives Verified 10/09/20 15:00 NSAIDS (Non-Steroidal AdvReac Unknown Ulcers Verified 10/09/20 15:00 Anti-Inflamma Home Medications Home Medications Medication Instructions Recorded Confirmed Type insulin glargine 100 unit/mL (3 15 units SQ HS ml 01/14/20 10/09/20 History mL) subcutaneous pen Zenpep See Rx Instructions .ROUTE .COMPLEX 09/24/20 10/09/20 History ascorbic acid (vitamin C) [Vitamin 500 mg PO QAM 09/24/20 10/09/20 History C] duloxetine 30 mg PO QAM 09/24/20 10/09/20 History ferrous sulfate 325 mg PO QAM 09/24/20 10/09/20 History insulin lispro [Humalog KwikPen See Rx Instructions .ROUTE .COMPLEX 09/24/20 10/09/20 History Insulin] nicotine 1 patch TRANSDERMAL DAILY 09/24/20 10/09/20 History omeprazole 40 mg PO BID 09/24/20 10/09/20 History polyethylene glycol 3350 [Miralax] 17 g PO DAILY PRN 09/24/20 10/09/20 History sucralfate 1 g PO ACHS 09/24/20 10/09/20 History quetiapine 100 mg PO HS #30 tab 09/28/20 10/09/20 Rx Past Med/Surg History Medical History Diabetes type 1, uncontrolled GI bleeding Iron deficiency anemia Narcotic abuse Pancreatitis, chronic Peptic ulcer with perforation Pseudoseizures Surgical History History of pancreatectomy Hx of cholecystectomy Hx of splenectomy Family History (Updated 10/09/20 @ 15:40 by Yomi Lemon DO) Father Healthy adult Mother Healthy adult Brother Healthy adult Other No pertinent family history in first degree relatives Social History Smoking Status: Current every day smoker Cigarettes Per Day: 1 pack a day; Hx Alcohol Use: No Hx Substance Use: Yes Last Used Substance: Unknown Preferred Language: Dutch Communication Ability: Effective 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 Beliefs That Will Affect Care: None marital status: Single Current Living Situation: Parent and Significant Other Feels Safe at Home: Yes Assistive Devices: Glasses Results & Data Results & Data ([facility]) Vital Signs (Past 12 Hours) Vital Signs Temp Pulse Resp BP Pulse Ox 10/09/20 14:30 86 22 10/09/20 14:00 103 H 17 153/77 H 10/09/20 13:37 108 H 21 10/09/20 13:35 100 H 24 141/71 H 10/09/20 12:34 36.9 C 122 H 20 130/86 98 Allergies gabapentin Allergy (Intermediate, Verified 10/09/20 15:00) Hives metoclopramide [From Reglan] Allergy (Intermediate, Verified 10/09/20 15:00) Hives NSAIDS (Non-Steroidal Anti-Inflamma Adverse Reaction (Unknown, Verified 10/09/20 15:00) Ulcers Height/Weight/Isolation Height 5 ft 10 in Weight 85 kg Chemistry 10/09/20 10/09/20 13:05 14:25 Sodium 130 L Potassium 4.2 Chloride 101 Carbon Dioxide 27 Anion Gap 2.0 L BUN 11 Creatinine 1.47 H Glucose 265 H
[2020-10-09] MEDS ORDERED: DEXTROSE 50% 50 ML SYRINGE IV PRN (17:58)
[2020-10-09] MEDS ORDERED: ACETAMINOPHEN 325 MG TAB PO PRN (17:58)
[2020-10-09] MEDS ORDERED: GLUCAGON FOR INJ 1 MG VIAL SQ PRN (17:58)
[2020-10-09] MEDS ORDERED: GLUCOSE 40% GEL 15 GM TUBE PO PRN (17:58)
[2020-10-09] MEDS ORDERED: GLUCOSE 10 TABS/TUBE PO PRN (17:58)
[2020-10-09] MEDS ORDERED: CARBOHYDRATES FOR HYPOGLYCEMIA PO PRN (17:58)
[2020-10-09] MEDS ORDERED: ONDANSETRON INJ 2 MG/ML 2 ML VIAL IV PRN (17:58)
[2020-10-09] MEDS ORDERED: ALUMINUM/MAGNESIUM SUSP 30 ML UDC PO PRN (17:58)
[2020-10-09] MEDS ORDERED: PHARMACY GLYCEMIC MGMT CONSULT PRN (18:37)
[2020-10-09 19:07] LABS: Hematocrit (blood only) 35.5 % (42-52); Hemoglobin 10.4 g/dL (14.0-18.0)
[2020-10-09] MEDS ORDERED: PANCREAZE (LIPASE 16,800U) CAP PO PRN (19:35)
[2020-10-09] MEDS: HYDROmorphone INJ 1 MG/ML SYRINGE IV PRN (19:45)
[2020-10-09] MEDS: SODIUM CHLORIDE 0.9% 1000ML 1,000 ML IV SCH (19:49)
[2020-10-09] MEDS: NICOTINE 21 MG/24 HR TDSY TD SCH (19:50)
[2020-10-09] MEDS: CIPROFLOXACIN / D5W 400 MG/200 ML BAG IV SCH (19:51)
[2020-10-09] MEDS: metroNIDAZOLE 500 MG/100 ML BAG IV SCH (19:51)
[2020-10-09] MEDS: SUCRALFATE 1 GM TAB PO SCH (19:51)
[2020-10-09] MEDS: INSULIN ASPART 100 UNITS/ML 3 ML PEN SC SCH (20:19)
--- NOTE | 2020-10-09 20:32 | Electrocardiogram Report ---
Test Reason : Blood Pressure : / mmHG Vent. Rate : 081 BPM Atrial Rate : 081 BPM P-R Int : 140 ms QRS Dur : 088 ms QT Int : 380 ms P-R-T Axes : 060 036 025 degrees QTc Int : 441 ms Normal sinus rhythm Normal ECG No previous ECGs available Confirmed by Lizandro Jaquez ([id number]) on 10/09/2020 8:31:42 PM Referred By: REFERRED SELF Confirmed By:Lizandro Jaquez
[2020-10-09] MEDS ORDERED: INSULIN GLARGINE SOLOSTAR 100 UNITS/ML 3 ML PEN SQ SCH (21:00)
[2020-10-09] MEDS ORDERED: QUEtiapine FUMARATE 100 MG TABLET PO SCH (21:00)
[2020-10-09] MEDS ORDERED: HYDROmorphone INJ 1 MG/ML SYRINGE IV STA (21:41)
[2020-10-10] MEDS: INSULIN ASPART 100 UNITS/ML 3 ML PEN SC SCH ×3 (00:03→08:26)
[2020-10-10] MEDS: PANTOprazole 40 MG in DEXTROSE 5% 100 ML IV SCH ×3 (00:10→07:00)
[2020-10-10] MEDS: HYDROmorphone INJ 1 MG/ML SYRINGE IV PRN ×4 (00:10→10:40)
[2020-10-10 01:04] LABS: Hematocrit (blood only) 34.9 % (42-52); Hemoglobin 10.1 g/dL (14.0-18.0)
[2020-10-10] MEDS: metroNIDAZOLE 500 MG/100 ML BAG IV SCH (04:08)
[2020-10-10] MEDS ORDERED: ALUMINUM/MAGNESIUM SUSP 72 ML, LIDOCAINE HCL VISCOUS 2% 24 ML, BARCODE IDENTIFIER 1 EA PO PRN (06:33)
[2020-10-10 07:14] LABS: Hematocrit (blood only) 37.7 % (42-52); Mean Corpuscular Hgb Conc 29.2 g/dL (32-36); Mean Corpuscular Volume 75.6 fL (80-100); Mean Platelet Volume 9.9 fL (7.4-10.4); Platelet Count 766 K/uL (130-400); RDW Coefficient of Variation 24.9 % (11.5-14.5); RDW Standard Deviation 68.1 fL (36.4-46.3); Red Blood Count 4.99 M/uL (4.7-6.1); White Blood Count 8.25 K/uL (4.8-10.8)
--- NOTE | 2020-10-10 07:16 | Hospitalist Progress Note ---
Date of Service October 10, 2020 Assessment & Plan (1) GI bleed: (2) Acute blood loss anemia: (3) Epigastric abdominal pain: (4) Duodenal ulcer: (5) Diabetes type 1, uncontrolled: (6) Hyponatremia: Continue PCU, GI evaluation, IV fluids, octreotide and PPI drip, n.p.o. except chips and sips, pain control, Pain Consult, patient does have a history of narcotic abuse. Basal Lantus and sliding scale. Accu-Cheks every 4. Pharmacy to control sugars. GI Cocktail ROS-No Headache, No Visual Changes, positive nausea, positive vomiting, No Fever, No Chills, No Neck Pain or Stiffness, No Chest Pain, No Palpitations, No SOB, No CURTIS, No Cough, No Sputum, No Wheezing, positive epigastric abdominal Pain, No Diarrhea, positive hematemesis, No Hemoptysis, No Unexpected Weight Loss, No Flank pain, positive melena, No Hematochezia, No Frequency, No Urgency, No Burning, No Hematuria, No Rashes, No Diaphoresis. Appetite is Normal, No new episodes of bleeding Labs Pendiing Physical Exam Gen-AAO x 3, mild distress, Afebrile, fit Head-NCAT, EOMI, PERRLA, Anicteric Sclera, No Posterior Pharyngeal Erythema Neck-Supple, No JVD, No Thyromegaly, No Masses, No LAD, No Bruits Lungs-Clear to Auscultation Bilaterally, No Rales, No Rhonchi, No Wheezing, No Crepitus Chest-No S4, +S1, +S2, No S3, No Murmurs, No Rubs, No Gallops, No Ectopy Abdomen-Soft, Bowel Sounds Present, tender epigastric area, Non Distended, No He patomegaly, No Splenomegaly, No Palpable Masses, No Rebound, No Rigidity, positive guarding Musculoskeletal-Full Range of Motion Bilaterally, No CVAT Extremities-No Cyanosis, No Clubbing, No Edema Nuero-Cranial Nerves II-XII grossly intact, Motor WNL, DTRs WNL, Strength WNL, Non Focal Psych-Normal Mood Admission and Anticipated Discharge Date Admission Date: October 09, 2020 Results & Data Results & Data ([facility]) Vital Signs (Past 12 Hours) Vital Signs Temp Pulse Pulse Resp BP Pulse Ox 10/10/20 02:41 36.4 C L 80 18 150/79 H 93 10/10/20 00:00 36.5 C 72 17 147/93 H 94 10/09/20 20:06 76 10/09/20 19:36 36.8 C 74 17 143/85 H 97
[2020-10-10] MEDS ORDERED: oxyCODONE HCL IR 5 MG TAB (IMMEDIATE RELEASE) PO PRN (07:20)
[2020-10-10 07:47] LABS: Albumin Level 2.6 gm/dl (3.4-5.0); BUN Creatinine Ratio 9.1 (10-20); Calcium 7.9 mg/dl (8.5-10.1); Creatinine Clr Calc Pharmacy 95.4 ml/min; Est GFR (African American) 96.1; Est GFR (Non-African American) 82.9; Potassium 3.9 mmol/L (3.5-5.1)
[2020-10-10] MEDS ORDERED: PANCREAZE (LIPASE 16,800U) CAP PO SCH (08:00)
[2020-10-10 08:02] LABS: Albumin Globulin Ratio 0.6 (0.9-2); Bilirubin,Total 0.3 mg/dl (0.2-1); Globulin 4.1 gm/dl (2.5-4.0); Total Protein 6.7 gm/dl (6.4-8.2)
[2020-10-10] MEDS: SODIUM CHLORIDE 0.9% 1000ML 1,000 ML IV SCH (08:27)
[2020-10-10] MEDS: NICOTINE 21 MG/24 HR TDSY TD SCH (08:28)
[2020-10-10] MEDS: CIPROFLOXACIN / D5W 400 MG/200 ML BAG IV SCH (08:28)
--- NOTE | 2020-10-10 08:38 | Gastrointestinal Consultation ---
Date of Consultation October 10, 2020 Assessment & Plan (1) Hematemesis: (2) Abdominal pain: (3) Duodenal ulcer: Continue Protonix and Octreotide gtts Continue supportive care Proceed with EGD now History of Present Illness Reason for Consultation: Hematemesis Attending Physician: Yomi Lemon DO History of Present Illness Doug Leyva is a 30 yo CM with an extensive PMHx including PUD with history of perforation requiring Bilroth II gastrojejunostomy, Whipple procedure, and splenectomy. He was recently seen at [facility], secondary to upper GI bleeding and underwent EGD with findings of an anastomotic ulcer and an additional duodenal ulcer with endoscopic therapy including epinephrine and endoclip therapy. He presented to the ER last night with complaints of hematemesis and severe epigastric abdominal pain. His H/H was 11.6/39.2, a CT scan of the abd/pelvis which showed no acute abnormalities, but extensive post- surgical changes. He was reportedly heme negative in the ER. He was subsequently admitted and placed on Protonix and Octreotide gtts. He does have a history of narcotic abuse in the past. At the time I saw the patient he continued to complain of severe epigastric pain, 8/10 in intensity, sharp and stabbing, non-radiating without exacerbating factors. He states that pain medication helps ease the pain. He states that he did not get his morning dose of pain medication, and is asking for it now. He denies any further episodes of hematemesis. He further denies any fevers, chills, nausea, vomiting, diarrhea or other complaints. Allergies Allergy/AdvReac Type Severity Reaction Status Date / Time gabapentin Allergy Intermediate Hives Verified 10/09/20 15:00 metoclopramide [From Reglan] Allergy Intermediate Hives Verified 10/09/20 15:00 NSAIDS (Non-Steroidal AdvReac Unknown Ulcers Verified 10/09/20 15:00 Anti-Inflamma Home Medications Home Medications Medication Instructions Recorded Confirmed Type insulin glargine 100 unit/mL (3 15 units SQ HS ml 01/14/20 10/09/20 History mL) subcutaneous pen Zenpep See Rx Instructions .ROUTE .COMPLEX 09/24/20 10/09/20 History ascorbic acid (vitamin C) [Vitamin 500 mg PO QAM 09/24/20 10/09/20 History C] duloxetine 30 mg PO QAM 09/24/20 10/09/20 History ferrous sulfate 325 mg PO QAM 09/24/20 10/09/20 History insulin lispro [Humalog KwikPen See Rx Instructions .ROUTE .COMPLEX 09/24/20 10/09/20 History Insulin] nicotine 1 patch TRANSDERMAL DAILY 09/24/20 10/09/20 History omeprazole 40 mg PO BID 09/24/20 10/09/20 History polyethylene glycol 3350 [Miralax] 17 g PO DAILY PRN 09/24/20 10/09/20 History sucralfate 1 g PO ACHS 09/24/20 10/09/20 History quetiapine 100 mg PO HS #30 tab 09/28/20 10/09/20 Rx Patient History Medical History Diabetes type 1, uncontrolled GI bleeding Iron deficiency anemia Narcotic abuse Pancreatitis, chronic Peptic ulcer with perforation Pseudoseizures Surgical History History of pancreatectomy Hx of cholecystectomy Hx of splenectomy Family History Father Healthy adult Mother Healthy adult Brother Healthy adult Other No pertinent family history in first degree relatives Social History Smoking Status: Current every day smoker Cigarettes Per Day: 1 pack a day; Do You Dip or Chew Tobacco: No; Hx Alcohol Use: No Hx Substance Use: Yes Last Used Substance: Unknown Preferred Language: Azeri Communication Ability: Effective 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 Beliefs That Will Affect Care: None marital status: Single Current Living Situation: Parent and Significant Other Other Information That Helps Us Care for You: No Feels Safe at Home: Yes Safety Concerns: Feels Safe At This Time Assistive Devices: Glasses Review of Systems Review of Systems: All systems reviewed & are unremarkable except as noted in Subjective Physical Exam Constitutional: + ill appearing; no acute distress chronic Eyes: PERRL, conjunctivae normal, anicteric sclerae ENMT: external ear and nose normal, oropharynx normal Neck: trachea midline, no thyromegaly Respiratory: normal respiratory effort, lungs clear to auscultation Cardiovascular: RRR, no murmur, no edema Gastrointestinal (Abdomen): normal bowel sounds, soft, nontender, no hepatosplenomegaly Skin: no rashes, warm and dry Psychiatric: Orientation: alert and oriented x 3 Results & Data ([facility]) Vital Signs (Past 12 Hours) Vital Signs Temp Pulse Resp BP Pulse Ox 10/10/20 07:58 36.4 C L 76 18 148/76 H 96 10/10/20 02:41 36.4 C L 80 18 150/79 H 93 10/10/20 00:00 36.5 C 72 17 147/93 H 94 PG Care Time/CCT Total # of Minutes Spent Total Time Spent with Patient: Total time spent is greater than 50% in coordination of care (as documented) at patient's floor/unit and/or counseling patient: Coding Level of Care Code 41906 Inpt Consult Level 4 Diagnoses Hematemesis K92.0 Nausea presence: with nausea Abdominal pain R10.13 Abdominal location: epigastric Duodenal ulcer K26.9 (1) Hematemesis Nausea presence: with nausea Qualified Code(s): K92.0 - Hematemesis (2) Abdominal pain Abdominal location: epigastric Qualified Code(s): R10.13 - Epigastric pain
[2020-10-10] MEDS ORDERED: LIDOCAINE HCL 2% 2 ML VIAL/AMP(20MG/ML) INFIL ONE (08:40)
[2020-10-10] MEDS ORDERED: PROPOFOL IV EMULSION 10 MG/ML 20 ML VIAL IV ONE ×3 (08:40→09:50)
[2020-10-10] MEDS ORDERED: DULoxetine HCL 30 MG CAP PO SCH (09:00)
--- NOTE | 2020-10-10 09:02 | Pain Management Consultation ---
Date of Consultation October 10, 2020 History of Present Illness Attending Physician: Yomi Lemon DO History of Present Illness I went to see the patient this morning but he had left to go to the endoscopy suite. Recommend holding on pain management evaluation until after GI work-up and treatment plan completed. Allergies Allergy/AdvReac Type Severity Reaction Status Date / Time gabapentin Allergy Intermediate Hives Verified 10/09/20 15:00 metoclopramide [From Reglan] Allergy Intermediate Hives Verified 10/09/20 15:00 NSAIDS (Non-Steroidal AdvReac Unknown Ulcers Verified 10/09/20 15:00 Anti-Inflamma Home Medications Home Medications Medication Instructions Recorded Confirmed Type insulin glargine 100 unit/mL (3 15 units SQ HS ml 01/14/20 10/09/20 History mL) subcutaneous pen Zenpep See Rx Instructions .ROUTE .COMPLEX 09/24/20 10/09/20 History ascorbic acid (vitamin C) [Vitamin 500 mg PO QAM 09/24/20 10/09/20 History C] duloxetine 30 mg PO QAM 09/24/20 10/09/20 History ferrous sulfate 325 mg PO QAM 09/24/20 10/09/20 History insulin lispro [Humalog KwikPen See Rx Instructions .ROUTE .COMPLEX 09/24/20 10/09/20 History Insulin] nicotine 1 patch TRANSDERMAL DAILY 09/24/20 10/09/20 History omeprazole 40 mg PO BID 09/24/20 10/09/20 History polyethylene glycol 3350 [Miralax] 17 g PO DAILY PRN 09/24/20 10/09/20 History sucralfate 1 g PO ACHS 09/24/20 10/09/20 History quetiapine 100 mg PO HS #30 tab 09/28/20 10/09/20 Rx Patient History Medical History Diabetes type 1, uncontrolled GI bleeding Iron deficiency anemia Narcotic abuse Pancreatitis, chronic Peptic ulcer with perforation Pseudoseizures Surgical History History of pancreatectomy Hx of cholecystectomy Hx of splenectomy Family History Father Healthy adult Mother Healthy adult Brother Healthy adult Other No pertinent family history in first degree relatives Social History Smoking Status: Current every day smoker Cigarettes Per Day: 1 pack a day; Do You Dip or Chew Tobacco: No; Hx Alcohol Use: No Hx Substance Use: Yes Last Used Substance: Unknown Preferred Language: Citizen Of [place] Communication Ability: Effective 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
[2020-10-10] MEDS ORDERED: ATROPINE SULFATE 0.1 MG/ML 10ML SYR IV PRN (09:13)
[2020-10-10] MEDS ORDERED: ePHEDrine sulfate 50 MG/ML AMP IV PRN (09:13)
--- NOTE | 2020-10-10 09:13 | Anesthesiology Consultation ---
Date of Service October 10, 2020 Assessment & Plan Chart Review Chart Review: Acceptable Risk for Surgery and Patient NOT seen in Pre Admission Testing Consults Requested none ASA ASA3 Proposed Anesthesia Anesthesia Type: MAC Risk / Benefits Reviewed With: PT / POA / Parent / Guardian, Accepts Plan and Informed Consent Obtained Additional Comments: covid test negative History Surgery Operation Date: 10/10/20 08:30 Proposed Procedures p Esophagogastroduodenoscopy Dr Hills - Ryley Walker Case, DO Height/Weight Height: 5 ft 10 in Weight: 86 kg Allergies Allergy/AdvReac Type Severity Reaction Status Date / Time gabapentin Allergy Intermediate Hives Verified 10/09/20 15:00 metoclopramide [From Reglan] Allergy Intermediate Hives Verified 10/09/20 15:00 NSAIDS (Non-Steroidal AdvReac Unknown Ulcers Verified 10/09/20 15:00 Anti-Inflamma Medications Home Medications Medication Instructions Recorded Confirmed Last Taken insulin glargine 100 unit/mL (3 15 units SQ HS ml 01/14/20 10/09/20 10/08/20 mL) subcutaneous pen Zenpep See Rx Instructions .ROUTE .COMPLEX 09/24/20 10/09/20 10/08/20 20:00 ascorbic acid (vitamin C) [Vitamin 500 mg PO QAM 09/24/20 10/09/20 10/09/20 06 :00 C] duloxetine 30 mg PO QAM 09/24/20 10/09/20 10/09/20 06:00 ferrous sulfate 325 mg PO QAM 09/24/20 10/09/20 10/09/20 06:00 insulin lispro [Humalog KwikPen See Rx Instructions .ROUTE .COMPLEX 09/24/20 10/09/20 10/09/20 10:00 Insulin] 8 units nicotine 1 patch TRANSDERMAL DAILY 09/24/20 10/09/20 10/08/20 omeprazole 40 mg PO BID 09/24/20 10/09/20 10/09/20 06:00 polyethylene glycol 3350 [Miralax] 17 g PO DAILY PRN 09/24/20 10/09/20 Unknown sucralfate 1 g PO ACHS 09/24/20 10/09/20 10/09/20 quetiapine 100 mg PO HS #30 tab 09/28/20 10/09/20 10/08/20 Active Medications Generic Name Dose Route Start Last Admin Trade Name Freq PRN Reason Stop Dose Admin Acetaminophen 650 mg 10/09/20 17:58 10/09/20 20:22 Acetaminophen 325 Mg Tab PO 11/08/20 17:57 650 mg Q4H PRN Administration Pain or Fever Lipase/Protease/Amylase 7 cap 10/10/20 08:00 10/10/20 08:26 Pancreaze (Lipase 16,800u) Cap PO 11/09/20 07:59 Not Given TIDM DWIGHT Hydromorphone HCl 1 mg 10/09/20 17:58 10/10/20 06:05 Hydromorphone Inj 1 Mg/Ml Syringe IV 10/23/20 17:57 1 mg Q3H PRN Administration Pain Ciprofloxacin 400 mg in 200 mls @ 100 mls/hr 10/09/20 20:00 10/10/20 08:28 Cipro / D5w IV 10/19/20 17:57 100 mls/hr Q12H DWIGHT Administration Protocol Metronidazole 500 mg in 100 mls @ 100 mls/hr 10/09/20 20:00 10/10/20 06:59 Flagyl IV 10/19/20 17:57 Infused Q8H DWIGHT Infusion Pantoprazole Sodium 40 mg/ 100 mls @ 20 mls/hr 10/09/20 19:00 10/10/20 05:10 Dextrose IV 11/08/20 17:57 8 mg/hr Q5H DWIGHT 20 mls/hr Administration 8 MG/HR Octreotide Acetate 500 mcg/ 105 mls @ 10.5 mls/hr 10/10/20 00:00 10/10/20 00:10 Sodium Chloride IV 11/09/20 00:00 50 mcg/hr .Q10H DWIGHT 10.5 mls/hr Administration 50 MCG/HR Sodium Chloride 1,000 mls @ 125 mls/hr 10/09/20 17:58 10/10/20 08:27 Nss 1000ml IV 11/08/20 17:57 125 mls/hr .Q8H DWIGHT Administration Insulin Aspart 0 units 10/09/20 20:00 10/10/20 08:26 Insulin Aspart 100 Units/Ml 3 Ml Pen SC 11/08/20 19:59 Not Given Q4 DWIGHT Insulin Glargine 15 units 10/09/20 21:00 10/09/20 21:19 Insulin Glargine Solostar 100 Units/Ml 3 Ml Pen SQ 11/08/20 20:59 15 units HS DWIGHT Administration Miscellaneous 1 ea 10/10/20 08:59 10/10/20 08:28 Remove Nicoderm Patch N/A 11/09/20 08:58 1 ea [id number] DWIGHT Administration Nicotine 21 mg 10/09/20 19:00 10/10/20 08:28 Nicotine 21 Mg/24 Hr Tdsy TD 11/08/20 18:59 21 mg DAILY DWIGHT Administration Ondansetron HCl 4 mg 10/09/20 17:58 10/10/20 02:58 Ondansetron Inj 2 Mg/Ml 2 Ml Vial IV 11/08/20 17:57 4 mg Q6H PRN Administration Nausea Quetiapine Fumarate 100 mg 10/09/20 21:00 10/09/20 21:58 Quetiapine Fumarate 100 Mg Tablet PO 11/08/20 20:59 100 mg HS DWIGHT Administration Sucralfate 1 gm 10/09/20 19:00 10/09/20 19:51 Sucralfate 1 Gm Tab PO 11/08/20 18:59 1 gm ACHS DWIGHT Administration NPO Date Last Intake of Fluids: 10/09/20 Time Last Intake of Fluids: 08:00 Date Last Intake of Solids: 10/08/20 Time Last Intake of Solids: 18:00 Past Medical History Medical History Diabetes type 1, uncontrolled GI bleeding Iron deficiency anemia Narcotic abuse Pancreatitis, chronic Peptic ulcer with perforation Pseudoseizures Exercise / Class Metabolic Activity III < 4 Walking/Shop/Light housework Past Family History Family History Father Healthy adult Mother Healthy adult Brother Healthy adult Other No pertinent family history in first degree relatives Past Surgical History Surgical History History of pancreatectomy Hx of cholecystectomy Hx of splenectomy Past Anesthesia History No Hx of Anesthesia Complications and No Family Hx of Anesthesia Complications History of PONV No Hx of PONV and No Hx of Motion Sickness Social History Smoking Status: Current every day smoker tobacco type: cigarettes Smoking cigarettes per day: 1 pack a day Do You Dip or Chew Tobacco: No Hx Alcohol Use: No Hx Substance Use: Yes substance use type: former substance user and marijuana Last Used Substance: Unknown Physical Exam Vital Signs Last Vital Signs Temp 36.7 C 10/10/20 09:04 Pulse 72 10/10/20 09:04 Resp 16 10/10/20 09:04 BP 180/103 H 10/10/20 09:04 Pulse Ox 96 10/10/20 09:04 Constitutional not obese ENMT Mouth: no dentition abnormality Thyromental Distance: > or= 3.5 Finger Breadths Mallampati Class: II Neck normal visual inspection, trachea midline and + facial hair; neck extension not limited Respiratory normal respiratory effort Auscultation: lungs clear to auscultation bilaterally Cardiovascular Rate/Rhythm: regular rate and regular rhythm Heart Sounds: no murmur Vessels: no carotid bruit Musculoskeletal Spine: normal cervical ROM Extremities: extremities normal to inspection Neurologic moves all extremities Motor/Sensory: no sensory deficit Psychiatric Orientation: alert and oriented x 3 Testing Laboratory Results 10/10/20 06:32 10/10/20 06:32 PT 10.2 Seconds (9.0-12.0) 10/09/20 13:05 INR 1.0 (0.9-1.1) 10/09/20 13:05 APTT 23.1 Seconds (21.0-31.0) 10/09/20 13:05 Blood Type A Positive 10/09/20 14:11 Antibody Screen NEGATIVE 10/09/20 14:11 10/10/20 10/10/20 10/09/20 07:29 04:00 23:58 POC Glucose 74 73 134 H Electrocardiogram Date: 10/09/20 Findings: + NSR @ (at 82)
--- NOTE | 2020-10-10 09:58 | GI REPORT ---
Patient Name: Doug Leyva Procedure Date: 10/10/2020 9:10 AM Date of : 1990 Admit Type: Inpatient Age: 30 Gender: Male Attending MD: Ryley Hills DO Procedure: Upper GI endoscopy Providers: Ryley Hills DO Referring MD: Yomi Lemon Do Indications: Hematemesis Medicines: Monitored Anesthesia Care Complications: No immediate complications. Estimated Blood Loss: Estimated blood loss: none. Procedure: Pre-Anesthesia Assessment: - Prior to the procedure, a History and Physical was performed, and patient medications and allergies were reviewed. The patient's tolerance of previous anesthesia was also reviewed. The risks and benefits of the procedure and the sedation options and risks were discussed with the patient. All questions were answered, and informed consent was obtained. Prior Anticoagulants: The patient has taken no previous anticoagulant or antiplatelet agents. ASA Grade Assessment: III - A patient with severe systemic disease. After reviewing the risks and benefits, the patient was deemed in satisfactory condition to undergo the procedure. After obtaining informed consent, the endoscope was passed under direct vision. Throughout the procedure, the patient's blood pressure, pulse, and oxygen saturations were monitored continuously. The Endoscope was introduced through the mouth, and advanced to the jejunum. The upper GI endoscopy was accomplished without difficulty. The patient tolerated the procedure well. Findings: Localized, white plaques were found in the mid esophagus and in the distal esophagus. Cells for cytology were obtained by brushing. A medium amount of food (residue) was found in the entire examined stomach. Evidence of a patent Billroth II gastrojejunostomy was found. The gastrojejunal anastomosis was characterized by healthy appearing mucosa. This was traversed. The efferent limb was examined. The afferent limb was examined. The examined jejunum was normal. Impression: - Esophageal plaques were found, consistent with candidiasis. Cells for cytology obtained. - A medium amount of food (residue) in the stomach. - Patent Billroth II gastrojejunostomy was found, characterized by healthy appearing mucosa. - Normal examined jejunum. Recommendation: - Return patient to [facility] for [facility] care. - Advance diet as tolerated to diabetic diet - Stop Protonix and Octerotide gtt. - Start Pantoprazole 40 mg by mouth twice daily - Continue Carafate 1 g PO QID AC and HS. Ryley Hills DO 10/10/2020 9:58:12 AM This report has been signed electronically. Note Initiated On: 10/10/2020 9:10 AM Number of Addenda: 0 I attest to the content of the Intraoperative Record and orders documented therein, exceptions below {[id number]}
[2020-10-10] MEDS ORDERED: OCTREOTIDE ACETATE 500 MCG in 0.9 % SODIUM CHLORIDE 100 ML IV SCH ×2 (10:00)
--- NOTE | 2020-10-10 10:12 | Pharmacy Report ---
Glycemic Control Consultation - Date of Service October 10, 2020 - Scope Scope: Glycemic Pharmacist consulted for glycemic control and to write orders per [facility] inpatient glycemic control protocol. - Objective Weight: 86 kg Accuchecks BSG (last 24hrs): Laboratory Data (last 24hrs): 10/09/20 10/09/20 10/10/20 13:05 14:25 06:32 Potassium 4.2 3.9 Carbon Dioxide 27 26 Anion Gap 2.0 L 5.0 Creatinine 1.47 H 1.18 Est Cr Clr Drug Dosing 76.6 95.4 - Recent Pertinent Medications Outpatient Anti-diabetic Regimen: * Lantus 15 units SC HS + Humalog SSI * A1c = 7.4% (09/26/2020) Risk Factors for Insulin Resistance: * Infection: * Ciprofloxacin & Flagyl * IVF: * Protonix drip in D5W * Diet: * NPO - Assessment & Plan Assessment & Plan: ASSESSMENT: * 30 yo M with h/o T1DM admitted secondary to acute GI Bleed. Pharmacy has been consulted for inpatient glycemic management. * Of note, patient has been NPO since admission and is currently undergoing an EGD. * Admission BSG was elevated at 265 mg/dL. He received home dose of 15 units of Lantus last evening. He was started on Novolog every 4 hours based on a weight/stress of 2-3. * Fasting BSG this AM was below goal at 74 mg/dL. * Will likely reduce home Lantus dose this evening by 20% * However, if he is ordered a diet postoperatively, then will need to trend BSGs this evening to ensure a higher Lantus dose is not warranted. * I have adjusted Novolog to every 6 hours while NPO. PLAN FOR INPATIENT GLYCEMIC CONTROL: * Basal insulin - decreased 20% * Lantus 12 units SC HS * Bolus insulin - changed to Q6H * NovoLog per scale ACHS or Q6hrs while NPO * Goal Range: Low 120 mg/dL - High 160 mg/dL * Correction Factor: 25 mg/dL/unit * Nutritional / Prandial insulin per carb ratio of 1 unit per 8 grams CHO consumed * Please note that the plan above was derived based on current level of insulin resistance and hospital stress. These recommendations are appropriate for inma tient admission only. Plan of care upon discharge will need to be reassessed to avoid potential outpatient hypo/hyperglycemia. Thank you.
--- NOTE | 2020-10-10 10:14 | Anesthesiology Progress Note ---
Date of Service October 10, 2020 Anesthesia Post Procedure Vital Signs Vital Signs: Temp Pulse Pulse Resp BP BP Pulse Ox 10/10/20 10:09 69 16 106/57 L 96 10/10/20 09:53 77 18 95/48 L 94 10/10/20 09:04 36.7 C 72 16 180/103 H 96 10/10/20 07:58 36.4 C L 76 18 148/76 H 96 10/10/20 02:41 36.4 C L 80 18 150/79 H 93 10/10/20 00:00 36.5 C 72 17 147/93 H 94 10/09/20 20:06 76 10/09/20 19:36 36.8 C 74 17 143/85 H 97 10/09/20 18:08 36.8 C 90 18 144/91 H 97 10/09/20 18:03 36.8 C 90 18 144/91 H 97 10/09/20 17:30 83 21 127/80 95 10/09/20 17:00 80 12 95 10/09/20 16:30 89 20 140/99 97 10/09/20 16:00 85 15 143/79 H 97 10/09/20 15:51 92 H 142/74 H 98 10/09/20 15:30 98 H 23 100 10/09/20 15:01 82 22 140/74 97 10/09/20 15:00 86 97 10/09/20 14:46 96 H 19 98 10/09/20 14:30 86 22 10/09/20 14:00 103 H 17 153/77 H 10/09/20 13:37 108 H 21 10/09/20 13:35 100 H 24 141/71 H 10/09/20 12:34 36.9 C 122 H 20 130/86 98 Pain Intensity Abdomen: Pain Intensity: 8 Transfer of Care Handoff Completed per policy Notes Mental Status: alert / awake / arousable Patient Amnestic to Procedure: Yes Nausea / Vomiting: adequately controlled Pain: adequately controlled Airway Patency, RR, SpO2: stable & adequate BP & HR: stable & adequate Hydration State: stable & adequate Anesthetic Complications: no major complications apparent
[2020-10-10] MEDS: SUCRALFATE 1 GM TAB PO SCH (10:44)
--- NOTE | 2020-10-10 11:29 | Discharge Summary ---
Date of Service October 10, 2020 Admission HPI Per Admitting Provider 30-year-old male with a past medical history of type 1 diabetes, GI bleeding, iron deficiency anemia, narcotic abuse, pancreatitis, peptic ulcer perforation and pseudoseizures presents with severe epigastric abdominal pain that started today. He says it is an 8 out of 10 currently in the epigastric area and he complains of having black stool and coffee-ground emesis today. 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 He is on a triple drug regimen and is monitored by GI as an outpatient. Currently his hemoglobin is 11.6 and his CAT scan shows no abdominal perforation. He was placed on octreotide and PPI drip by the ER physician and Dr. Hills from GI said he felt comfortable with removing here. Admission Exam Per Admitting Provider Physical Exam Gen-AAO x 3, mild distress, Afebrile, fit Head-NCAT, EOMI, PERRLA, Anicteric Sclera, No Posterior Pharyngeal Erythema Neck-Supple, No JVD, No Thyromegaly, No Masses, No LAD, No Bruits Lungs-Clear to Auscultation Bilaterally, No Rales, No Rhonchi, No Wheezing, No Crepitus Chest-No S4, +S1, +S2, No S3, No Murmurs, No Rubs, No Gallops, No Ectopy Abdomen-Soft, Bowel Sounds Present, tender epigastric area, Non Distended, No Hepatomegaly, No Splenomegaly, No Palpable Masses, No Rebound, No Rigidity, positive guarding Musculoskeletal-Full Range of Motion Bilaterally, No CVAT Extremities-No Cyanosis, No Clubbing, No Edema Nuero-Cranial Nerves II-XII grossly intact, Motor WNL, DTRs WNL, Strength WNL, Non Focal Psych-Normal Mood Principal Diagnosis (1) GI bleed: (2) Esophageal plaques consistent with candidiasis. (3) Epigastric abdominal pain: (4) Duodenal ulcer: (5) Diabetes type 1, uncontrolled: (6) Hyponatremia: Discharge Exam Physical Exam Gen-AAO x 3, NAD, Afebrile Head-NCAT, EOMI, PERRLA, Anicteric Sclera, No Posterior Pharyngeal Erythema Neck-Supple, No JVD, No Thyromegaly, No Masses, No LAD, No Bruits Lungs-Clear to Auscultation Bilaterally, No Rales, No Rhonchi, No Wheezing, No Crepitus Chest-No S4, +S1, +S2, No S3, No Murmurs, No Rubs, No Gallops, No Ectopy Abdomen-Soft, Bowel Sounds Present, Tender, Non Distended, No Hepatomegaly, No Splenomegaly, No Palpable Masses, No Rebound, No Rigidity, No Guarding Musculoskeletal-Full Range of Motion Bilaterally, No CVAT Extremities-No Cyanosis, No Clubbing, No Edema Nuero-Cranial Nerves II-XII grossly intact, Motor WNL, DTRs WNL, Strength WNL, Non Focal Psych-Normal Mood Discharge Data Allergies Allergy/AdvReac Type Severity Reaction Status Date / Time gabapentin Allergy Intermediate Hives Verified 10/09/20 15:00 metoclopramide [From Reglan] Allergy Intermediate Hives Verified 10/09/20 15:00 NSAIDS (Non-Steroidal AdvReac Unknown Ulcers Verified 10/09/20 15:00 Anti-Inflamma Consultations 10/09/20 15:08 ED Decision to Admit Stat 10/09/20 17:58 Consult General Surgery Routine 10/10/20 07:12 Consult Pain Management Routine 10/10/20 08:10 Consult Orthopedic Surgery Routine 10/10/20 09:53 Consult General Surgery Routine Procedures Performed Operation Date: 10/10/20 08:30 Actual Procedures p EGD Biopsy Cytology - Ryley Walker Case, DO Ordered Studies 10/09/20 13:45 CT abd pelvis IV con only Stat Current Diagnoses Acute posthemorrhagic anemia (10/09/20) Type 1 diabetes mellitus with hyperglycemia (10/09/20) Hypo-osmolality and hyponatremia (10/09/20) Duodenal ulcer, unspecified as acute or chronic, without hemorrhage or perforation (10/09/20) Hematemesis (10/09/20) Gastrointestinal hemorrhage, unspecified (10/09/20) Epigastric pain (10/09/20) Allergies gabapentin Allergy (Intermediate, Verified 10/09/20 15:00) Hives metoclopramide [From Reglan] Allergy (Intermediate, Verified 10/09/20 15:00) Hives NSAIDS (Non-Steroidal Anti-Inflamma Adverse Reaction (Unknown, Verified 10/09/20 15:00) Ulcers Height/Weight/Isolation Height 5 ft 10 in Weight 86 kg Chemistry 10/09/20 10/09/20 10/10/20 13:05 14:25 06:32 Sodium 130 L 138 D Potassium 4.2 3.9 Chloride 101 107 Carbon Dioxide 27 26 Anion Gap 2.0 L 5.0 BUN 11 11 Creatinine 1.47 H 1.18 Glucose 265 H 55 L Hospital Course (1) GI bleed: (2) Acute blood loss anemia: (3) Epigastric abdominal pain: (4) Duodenal ulcer: (5) Diabetes type 1, uncontrolled: (6) Hyponatremia: DC home, white plaques found in distal esophagus, will DC today on Diflucan and Nystatin Sw/Sw, DC octreotide and PPI drip, BID PPI and Carfate, Full liquid diet and adv AT. F/U c GI in the office, Biopsies performed, Physical Exam Gen-AAO x 3, mild distress, Afebrile, fit Head-NCAT, EOMI, PERRLA, Anicteric Sclera, No Posterior Pharyngeal Erythema Neck-Supple, No JVD, No Thyromegaly, No Masses, No LAD, No Bruits Lungs-Clear to Auscultation Bilaterally, No Rales, No Rhonchi, No Wheezing, No Crepitus Chest-No S4, +S1, +S2, No S3, No Murmurs, No Rubs, No Gallops, No Ectopy Abdomen-Soft, Bowel Sounds Present, tender epigastric area, Non Distended, No Hepatomegaly, No Splenomegaly, No Palpable Masses, No Rebound, No Rigidity, positive guarding Musculoskeletal-Full Range of Motion Bilaterally, No CVAT Extremities-No Cyanosis, No Clubbing, No Edema Nuero-Cranial Nerves II-XII grossly intact, Motor WNL, DTRs WNL, Strength WNL, Non Focal Psych-Normal Mood Total Time Total Time Spent Total Time Spent (In Minutes): 45 mins Total Time Includes: Examination of the Patient, Discharge Planning, Medication Reconciliation and Communication With Other Providers Discharge Plan Discharge Items Patient Disposition: Home - Self-Care Reason For Visit: GI BLEED/ABD PAIN Discharge Diagnosis: (1) GI bleed: (2) Esophageal plaques consistent with candidiasis. (3) Epigastric abdominal pain: (4) Duodenal ulcer: (5) Diabetes type 1, uncontrolled: (6) Hyponatremia: (7) Buttock Abscess Condition on Discharge: Good Health Concerns: Rebleeding Patient Eloped before DC instructions Given Buttock Abscess needs to be addressed Bactrim, Diflucan, Nystain, and Carafate scripts sent to Rx in [place] Activity: Resume your previous activity Lifting: None Bathing: No limitations Sexual Activity: When tolerated Exercise/Sports: None Driving/Machine Use: No limitations Weightbearing: Full weightbearing Non-emergency contact: Primary Care Provider and Inventory Associate Call non-emergency contact if: you have any medication questions, your symptoms worsen and your temperature is above 101 Follow-up/Referrals: Ryley Hills, DO [Physician] - (Call for first opening and to go over biopsy results) PCP,NO [Primary Care Provider] - Diet: Carb Count or DM1 and Full liquid Diet Comment: Advance diet as tolerated Addtl Attending Provider Instructions: Take Diflucan and Nystatin Swish and Swallow for 10 days Take Protonix and Carafate for your stomach Limit Narcotics unless pain unbearable, this contributes to Stomach problems Follow up Surgery for Buttock Abscess, Take Bactrim for Buttock Abscess Pending Studies at Discharge: No Stand-Alone Forms: My [facility] [employer], Opioid Pain Management, Smoking Cessation Medications and DC Order Prescriptions: New sucralfate 1 gram Tablet 1 g PO ACHS Qty: 100 RF: 0 nystatin 100,000 unit/mL suspension 1 ml PO QID 10 Days Qty: 40 RF: 0 fluconazole [Diflucan] 200 mg tablet 200 mg PO DAILY 10 Days Qty: 10 RF: 0 sulfamethoxazole-trimethoprim [Bactrim DS] 800-160 mg tablet 1 tab PO DAILY 10 Days Qty: 10 RF: 0 Continued Lantus Solostar U-100 Insulin 100 unit/mL (3 mL) insulin pen 15 units SQ HS RF: 0 omeprazole 40 mg capsule,delayed release(DR/EC) 40 mg PO BID RF: 0 ascorbic acid (vitamin C) [Vitamin C] 500 mg tablet 500 mg PO QAM RF: 0 ferrous sulfate 325 mg (65 mg iron) tablet 325 mg PO QAM RF: 0 nicotine 21 mg/24 hr Patch 24 Hour 1 patch TRANSDERMAL DAILY RF: 0 polyethylene glycol 3350 [Miralax] 17 gram/dose Powder 17 g PO DAILY PRN (Reason: Constipation) RF: 0 insulin lispro [Humalog KwikPen Insulin] 100 unit/mL insulin pen See Rx Instructions .ROUTE .COMPLEX RF: 0 duloxetine 30 mg capsule,delayed release(DR/EC) 30 mg PO QAM RF: 0 Zenpep 40,000-126,000- 168,000 unit capsule,delayed release(DR/EC) See Rx Instructions .ROUTE .COMPLEX RF: 0 quetiapine 100 mg Tablet 100 mg PO HS Qty: 30 RF: 0 Discontinued sucralfate 1 gram tablet 1 g PO ACHS RF: 0 Discharge Orders: Discharge Order (Routine); Ordered 10/10/20 Ordered By: Yomi Lemon Admission Data Admit Date/Time: 10/09/20 15:54 Attending Provider: Yomi Lemon Admit Provider: Yomi Lemon Primary Care Provider: PCP,NO Other Providers: Yomi Lemon ; Lia Vaughan ; Evarsito Martinez ; Ryley Hills ; Kike Ramon ; Iris Mark ; Mildred Perez ; Pawan Mcneill ; Ambrosio Mcmanus ; Iggy Echols ; Delaney Gamble ; Anjelica Wall ; Tameka Beaver ; Hunter Chacon Jr ; Fantasma Stearns Other Interventions: Discharge Summary Assessment (RN) Last Done: 10/10/20 10:14
[2020-10-10] MEDS ORDERED: INSULIN ASPART 100 UNITS/ML 3 ML PEN SC SCH (12:00)
== END 2020-10-10 11:40 | disposition home or self-care (01) | DRG 378 ==
LOC: ED 12:30 → 2S 15:54